=== PATIENT | female | born 1995 | race Hispanic/Latino ===

== ENCOUNTER 2019-05-14 07:32 | Emergency (ER) | payer BC, OTHER ==
--- OUTSIDE RECORDS SUMMARY | 2019-05-14 07:47 | XMS REPORT ---
:1995 [facility] Address [address] [place] [address] Dr. Deluca [address] [place] [id number] Care Team Providers Name Role Phone Unavailable Unavailable Unavailable Problems This patient has no known problems. Allergies, Adverse Reactions, Alerts This patient has no known allergies or adverse reactions. Medications This patient has no known medications.
[2019-05-14] MEDS ORDERED: ONDANSETRON 4 MG (ODT) TAB ONE (08:17)
[2019-05-14 08:40] LABS: Urine Blood NEGATIVE (NEG); Urine Glucose NEGATIVE (NEG); Urine Protein 1+ (NEG); Urine pH 6.5 (5.0-7.0)
[2019-05-14 08:41] LABS: Absolute Lymphocytes (CBC) 2.2 K/uL (0.7-4.9); Basophils % 0.4 % (0-1.3); Eosinophils % 0.5 % (0-4.4); Hematocrit 38.7 % (36.0-45.0); Lymphocytes % 33.1 % (15.3-44.8); MPV 10.2 fL (7.6-11.3); Monocytes % 4.6 % (3.3-12.3); RBC Red Blood Cell Count 4.25 M/uL (3.86-4.86)
[2019-05-14] MEDS ORDERED: ONDANSETRON 4 MG/2 ML VIAL ONE (08:41)
[2019-05-14] MEDS ORDERED: NA CHLORIDE 0.9% 1,000 ML ONE (08:41)
[2019-05-14] MEDS ORDERED: FAMOTIDINE 20 MG/2 ML VIAL IV ONE (08:41)
[2019-05-14 08:46] LABS: ALT/SGPT 14 U/L (12-78); AST/SGOT 14 U/L (15-37); Alkaline Phosphatase 55 U/L (45-117); BUN Blood Urea Nitrogen 8 mg/dL (7-18); Bicarbonate 26 mmol/L (21-32); Bilirubin Direct 0.2 mg/dL (0-0.2); Bilirubin Total 0.6 mg/dL (0.2-1.0); Glucose Level 83 mg/dL (74-106); Lipase 81 U/L (73-393); Potassium 3.3 mmol/L (3.5-5.1); Protein, Total 7.9 g/dL (6.4-8.2); Sodium Level 140 mmol/L (136-145)
[2019-05-14] MEDS ORDERED: POTASSIUM 25 MEQ EFFERV TAB ONE (09:12)
--- NOTE | 2019-05-14 09:37 | ER ---
Nurse's Notes [facility] Name: Roopa Mcclure Age: 23 yrs Sex: Female : 1995 Arrival Date: 05/14/2019 Time: 07:36 Bed 18 Private MD: Diagnosis: Nausea and vomiting; related conditions, unspecified, first trimester Presentation: 05/14 07:44 Presenting complaint: Patient states: i dont know my LMP but per US im 11 weeks hj , since yesterday, theresa been vomiting and couldn't hold down even water; reports feeling cold; denies abd pain, denies diarrhea;. Transition of care: patient was not received from another setting of care. Onset of symptoms was May 14, 2019. Risk Assessment: Do you want to hurt yourself or someone else? Patient reports no desire to harm self or others. Initial Sepsis Screen: Does the patient meet any 2 criteria? No. Patient's initial sepsis screen is negative. Does the patient have a suspected source of infection? No. Patient's initial sepsis screen is negative. Care prior to arrival: None. 07:44 Method Of Arrival: Ambulatory 07:44 Acuity: IRVING 3 hj Triage Assessment: 07:46 General: Appears in no apparent distress. uncomfortable, Behavior is calm, cooperative, hj appropriate for age. Pain: Denies pain. GI: Reports nausea, vomiting. 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 - Social history:: Smoking status: Patient/guardian denies using tobacco, Patient/guardian denies using alcohol. - Ebola Screening: : Patient negative for fever greater than or equal to 101.5 degrees Fahrenheit, and additional compatible Ebola Virus Disease symptoms Patient denies exposure to infectious person Patient denies travel to an Ebola-affected area in the 21 days before illness onset. Screenin:46 Abuse screen: Denies threats or abuse. Denies injuries from another. Nutritional hj screening: No deficits noted. Tuberculosis screening: No symptoms or risk factors identified. Fall Risk None identified. Assessment: 07:47 GI: Abdomen is non-distended. hj 08:10 Reassessment: vomited x 1 after giving zofran PO;. Vital Signs: 07:47 BP 107 / 83; Pulse 79; Resp 18; Temp 98.5(O); Pulse Ox 100% on R/A; Weight 60.78 kg; hj Height 5 ft. 0 in. (152.40 cm); Pain 0/10; 08:02 BP 104 / 69 LA Supine; Pulse 69; Resp 16; Pulse Ox 100% on R/A; dh3 08:04 BP 108 / 82 LA Sitting; Pulse 75; Resp 17; Pulse Ox 97% on R/A; dh3 08:06 BP 111 / 80 LA Standing; Pulse 83; Resp 18; Pulse Ox 100% on R/A; dh3 09:47 BP 100 / 85; Pulse 75; Resp 18; Pulse Ox 100% on R/A; hj 07:47 Body Mass Index 26.17 (60.78 kg, 152.40 cm) ED Course: 07:36 Patient arrived in ED. mr 07:38 German Jiang PA is PHCP. cp 07:39 Jordi Shepherd MD is Attending Physician. cp 07:43 Keyshawn Graham, AMBER is Primary Nurse. hj 07:45 Triage completed. hj 07:47 Arm band placed on. hj 07:47 Patient has correct armband on for positive identification. Placed in gown. Bed in low hj position. Call light in reach. Side rails up X 1. 07:55 Urine collected: clean catch specimen, alfredo colored. dh3 08:20 Initial lab(s) drawn, by ne, sent to lab. Inserted saline lock: 22 gauge in right hj antecubital area, using aseptic technique. Blood collected. 08:34 Inserted saline lock: 22 gauge in left antecubital area, using aseptic technique. dh3 09:46 No provider procedures requiring assistance completed. IV discontinued, intact, hj bleeding controlled, No redness/swelling at site. Pressure dressing applied. Administered Medications: 08:01 Drug: Zofran 4 mg Route: PO; hj 08:08 Follow up: Response: No adverse reaction; Nausea is decreased hj 08:30 Drug: NS 0.9% 1000 ml Route: IV; Rate: 1 bolus; Site: left antecubital; hj 09:47 Follow up: IV Status: Completed infusion; IV Intake: 1000ml hj 08:30 Drug: Zofran 4 mg Route: IVP; Site: left antecubital; hj 08:56 Follow up: Response: No adverse reaction hj 08:30 Drug: Pepcid 20 mg Route: IVP; Site: left antecubital; hj 08:57 Follow up: Response: No adverse reaction hj 08:54 Drug: Potassium Effervescent Tablet 25 mEq Route: PO; hj 09:40 Follow up: Response: No adverse reaction hj Intake: 09:47 IV: 1000ml; Total: 1000ml. Outcome: 09:36 Discharge ordered by . cp 09:46 Discharged to home ambulatory. hj 09:46 Condition: stable 09:46 Discharge instructions given to patient, Instructed on discharge instructions, follow up and referral plans. medication usage, Demonstrated understanding of instructions, follow-up care, medications, Prescriptions given X 3. 09:55 Patient left the ED. Signatures: Krystin Gonzalez Henry, RN RN hj German Jiang PA PA cp Herrera, Deanna 3
--- NOTE | 2019-05-14 09:37 | EDPHYS ---
Physician Documentation [facility] Name: Roopa Mcclure Age: 23 yrs Sex: Female : 1995 Arrival Date: 05/14/2019 Time: 07:36 Bed 18 Private MD: ED Physician Jordi Shepherd HPI: 05/14 08:05 This 23 yrs old Female presents to ER via Ambulatory with complaints of cp Vomiting, Sore Throat, 11 wks . 08:05 The patient presents to the emergency department with nausea and vomiting. cp 08:05 The estimated gestational age is 11 weeks. cp 08:05 course: care: private OB physician, Leakage of Fluid: none cp appreciated, Ultrasound: the patient had an ultrasound. Previous pregnancies: in previous pregnancies patient has had no complications. Associated signs and symptoms: Pertinent negatives: abdominal pain, diarrhea, fever, ruptured membranes, vaginal bleeding. 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 - Social history:: Smoking status: Patient/guardian denies using tobacco, Patient/guardian denies using alcohol. - Ebola Screening: : Patient negative for fever greater than or equal to 101.5 degrees Fahrenheit, and additional compatible Ebola Virus Disease symptoms Patient denies exposure to infectious person Patient denies travel to an Ebola-affected area in the 21 days before illness onset. ROS: 08:10 Constitutional: Positive for poor PO intake, Negative for body aches, chills, fever. cp 08:10 Eyes: Negative for injury, pain, redness, and discharge. cp 08:10 ENT: Negative for drainage from ear(s), ear pain, sore throat, difficulty swallowing, difficulty handling secretions. 08:10 Cardiovascular: Negative for chest pain, palpitations. 08:10 Respiratory: Negative for cough, shortness of breath, wheezing. 08:10 Abdomen/GI: Positive for nausea and vomiting, Negative for abdominal pain, diarrhea, constipation, hematemesis, black/tarry stool, rectal bleeding. 08:10 Skin: Negative for rash. 08:10 Neuro: Negative for altered mental status, syncope, weakness. 08:10 All other systems are negative. Exam: 08:20 Constitutional: The patient appears in no acute distress, alert, awake, non-toxic, well cp developed, well nourished. 08:20 Head/Face: Normocephalic, atraumatic. cp 08:20 Eyes: Periorbital structures: appear normal, Conjunctiva: normal, no exudate, no injection, Sclera: no appreciated abnormality, Lids and lashes: appear normal, bilaterally. 08:20 ENT: External ear(s): are unremarkable, Nose: is normal, Mouth: Lips: moist, Oral mucosa: pink and intact, moist, Posterior pharynx: Airway: no evidence of obstruction, patent. 08:20 Chest/axilla: Inspection: normal, Palpation: is normal, no crepitus, no tenderness. 08:20 Cardiovascular: Rate: normal, Rhythm: regular. 08:20 Respiratory: the patient does not display signs of respiratory distress, Respirations: normal, no use of accessory muscles, no retractions, no splinting, no tachypnea, labored breathing, is not present, Breath sounds: are clear throughout, no decreased breath sounds, no stridor, no wheezing. 08:20 Abdomen/GI: Inspection: abdomen appears normal, Bowel sounds: active, all quadrants, Palpation: abdomen is soft and non-tender, in all quadrants, rebound tenderness, is not appreciated, involuntary guarding, is not appreciated. 08:20 Back: pain, is absent, ROM is normal. Vital Signs: 07:47 BP 107 / 83; Pulse 79; Resp 18; Temp 98.5(O); Pulse Ox 100% on R/A; Weight 60.78 kg; hj Height 5 ft. 0 in. (152.40 cm); Pain 0/10; 08:02 BP 104 / 69 LA Supine; Pulse 69; Resp 16; Pulse Ox 100% on R/A; dh3 08:04 BP 108 / 82 LA Sitting; Pulse 75; Resp 17; Pulse Ox 97% on R/A; dh3 08:06 BP 111 / 80 LA Standing; Pulse 83; Resp 18; Pulse Ox 100% on R/A; dh3 09:47 BP 100 / 85; Pulse 75; Resp 18; Pulse Ox 100% on R/A; hj 07:47 Body Mass Index 26.17 (60.78 kg, 152.40 cm) hj MDM: 07:39 Patient medically screened. cp 08:00 Differential diagnosis: dehydration, electrolyte abnormality, diabetes mellitus. cp 09:35 Data reviewed: vital signs, nurses notes, lab test result(s), radiologic studies, cp ultrasound. 09:35 Counseling: I had a detailed discussion with the patient and/or guardian regarding: the cp historical points, exam findings, and any diagnostic results supporting the discharge/admit diagnosis, lab results, radiology results, the need for outpatient follow up, an OB/Gyne specialist, to return to the emergency department if symptoms worsen or persist or if there are any questions or concerns that arise at home. Response to treatment: the patient's symptoms have markedly improved after treatment, Nausea improved and vomiting resolved, and as a result, I will discharge patient. 05/14 07:58 Order name: Urine Dipstick--Ancillary (enter results); Complete Time: 08:44 05/14 07:58 Order name: Urine --Ancillary (enter results); Complete Time: 08:44 bd 05/14 08:15 Order name: Basic Metabolic Panel; Complete Time: 08:47 cp 05/14 08:47 Interpretation: Normal except: K 3.3; CRE 0.50. cp 05/14 08:15 Order name: CBC with Diff; Complete Time: 08:44 cp 05/14 08:45 Interpretation: Normal except: MCV 91.1; MCH 31.0. cp 05/14 08:15 Order name: Creatinine for Radiology; Complete Time: 08:44 cp 05/14 08:15 Order name: Hepatic Function; Complete Time: 08:47 cp 05/14 07:59 Order name: Orthostatics; Complete Time: 08:08 cp 05/14 08:15 Order name: Lipase; Complete Time: 08:47 cp 05/14 08:15 Order name: IV Saline Lock; Complete Time: 08:23 cp 05/14 08:15 Order name: Labs collected and sent; Complete Time: 08:23 cp Administered Medications: 08:01 Drug: Zofran 4 mg Route: PO; 08:08 Follow up: Response: No adverse reaction; Nausea is decreased hj 08:30 Drug: NS 0.9% 1000 ml Route: IV; Rate: 1 bolus; Site: left antecubital; hj 09:47 Follow up: IV Status: Completed infusion; IV Intake: 1000ml hj 08:30 Drug: Zofran 4 mg Route: IVP; Site: left antecubital; hj 08:56 Follow up: Response: No adverse reaction hj 08:30 Drug: Pepcid 20 mg Route: IVP; Site: left antecubital; hj 08:57 Follow up: Response: No adverse reaction hj 08:54 Drug: Potassium Effervescent Tablet 25 mEq Route: PO; hj 09:40 Follow up: Response: No adverse reaction Disposition: 05/14/19 09:36 Discharged to Home. Impression: Nausea and vomiting, related conditions, unspecified, first trimester. - Condition is Stable. - Discharge Instructions: Form - Excuse from Work, School, or Physical Activity, Form - Return To Work, Potassium Content of Foods, Nausea and Vomiting, Adult. - Prescriptions for Vitamin 27- 0.8 mg Oral Tablet - take 1 tablet by ORAL route once daily; 60 tablet. Zofran 4 mg Oral Tablet - take 1 tablet by ORAL route every 12 hours As needed; 6 tablet. Pepcid 20 mg Oral Tablet - take 1 tablet by ORAL route every 12 hours for 10 days; 20 tablet. - Work release form, Medication Reconciliation Form, Thank You Letter, Antibiotic Education, Prescription Opioid Use form. - Follow up: Private Physician; When: 1 - 2 days; Reason: Recheck today's complaints. - Problem is new. - Symptoms have improved. Signatures: Dispatcher [facility] Keyshawn Graham RN RN hj Page, Corey, PA PA cp Corrections: (The following items were deleted from the chart) 09:55 09:36 05/14/2019 09:36 Discharged to Home. Impression: Nausea and vomiting; hj related conditions, unspecified, first trimester. Condition is Stable. Forms are Medication Reconciliation Form, Thank You Letter, Antibiotic Education, Prescription Opioid Use. Follow up: Private Physician; When: 1 - 2 days; Reason: Recheck today's complaints. Problem is new. Symptoms have improved. cp 05/15 06:31 05/14 08:05 The patient presents to the emergency department with nausea, with "dry cp heaves", vomiting, that is continuous, cp 05/15 08:05 Onset: The symptoms/episode began/occurred yesterday, cp cp 05/15 08:05 Possible causes: , cp cp
[2019-05-14 10:01] VITALS: TEMP 98.5
[2019-05-14 10:05] VITALS: O2SAT 100
[2019-05-14 10:07] VITALS: BP 100/85
== END 2019-05-14 09:55 | disposition home or self-care (01) ==
LOC: ER 07:32
DX: O21.9 Vomiting of pregnancy, unspecified (principal); Z3A.11 11 weeks gestation of pregnancy
CPT/HCPCS: 36415; 80048; 80076; 81003; 81025; 83690; 85025; 96361; 96374; 96375; 99284; J2405; J7030

== ENCOUNTER 2019-08-02 02:22 | Emergency (ER) | payer OTHER ==
--- OUTSIDE RECORDS SUMMARY | 2019-08-02 02:43 | XMS REPORT ---
:1995 Author Organization [facility] Address [address] [place] [address] Dr. Deluca [address] [place] [id number] Care Team Providers Name Role Phone Unavailable Unavailable Unavailable Problems This patient has no known problems. Allergies, Adverse Reactions, Alerts This patient has no known allergies or adverse reactions. Medications This patient has no known medications.
[2019-08-02] MEDS ORDERED: ONDANSETRON 4 MG/2 ML VIAL ONE (03:00)
[2019-08-02] MEDS ORDERED: NA CHLORIDE 0.9% 2,000 ML ONE (03:00)
[2019-08-02] MEDS ORDERED: MEPERIDINE HCL 25 MG/0.5 ML ONE (03:00)
[2019-08-02 03:04] LABS: Absolute Lymphocytes (CBC) 2.4 K/uL (0.7-4.9); Basophils % 0.2 % (0-1.3); Hematocrit 30.2 % (36.0-45.0); Lymphocytes % 20.7 % (15.3-44.8); MPV 10.1 fL (7.6-11.3); RBC Red Blood Cell Count 3.28 M/uL (3.86-4.86)
[2019-08-02 03:33] LABS: ALT/SGPT 11 U/L (12-78); AST/SGOT 8 U/L (15-37); Albumin 2.9 g/dL (3.4-5.0); Alkaline Phosphatase 77 U/L (45-117); BUN Blood Urea Nitrogen 6 mg/dL (7-18); Bicarbonate 24 mmol/L (21-32); Bilirubin Direct < 0.1 mg/dL (0-0.2); Bilirubin Total 0.1 mg/dL (0.2-1.0); Glucose Level 84 mg/dL (74-106); Lipase 78 U/L (73-393); Potassium 3.6 mmol/L (3.5-5.1); Protein, Total 6.6 g/dL (6.4-8.2); Sodium Level 140 mmol/L (136-145)
[2019-08-02 04:28] LABS: Blood Morphology Comment NOT SEEN (NOT SEEN); Platelet Estimate ADEQ
--- NOTE | 2019-08-02 07:18 | EDPHYS ---
Physician Documentation [facility] Name: Roopa Mcclure Age: 23 yrs Sex: Female : 1995 Arrival Date: 08/02/2019 Time: 02:24 Bed 5 Private MD: ED Physician Vinayak Quintanilla HPI: 08/02 02:43 This 23 yrs old Female presents to ER via Wheelchair with complaints of Low pkl Back Pain. 02:49 The patient complains of pain in the right flank. The pain radiates to the right lower pkl quadrant. Onset: The symptoms/episode began/occurred just prior to arrival, 3 hour(s) ago. Patient is about 25 weeks . 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 - Social history:: Smoking status: Patient/guardian denies using tobacco, Patient/guardian denies using alcohol, street drugs. - Ebola Screening: : Patient negative for fever greater than or equal to 101.5 degrees Fahrenheit, and additional compatible Ebola Virus Disease symptoms Patient denies exposure to infectious person Patient denies travel to an Ebola-affected area in the 21 days before illness onset. ROS: 02:49 Eyes: Negative for injury, pain, redness, and discharge, ENT: Negative for injury, pkl pain, and discharge, Neck: Negative for injury, pain, and swelling, Cardiovascular: Negative for chest pain, palpitations, and edema, Respiratory: Negative for shortness of breath, cough, wheezing, and pleuritic chest pain. 02:49 Abdomen/GI: Negative for nausea, vomiting, and diarrhea. 02:49 Back: Positive for flank pain, on the right. 02:49 : Negative for urinary symptoms. 02:49 MS/extremity: Negative for acute changes. 02:49 Skin: Negative for rash. 02:49 Neuro: Negative for altered mental status. Exam: 02:49 Head/Face: Normocephalic, atraumatic. Eyes: Pupils equal round and reactive to light, pkl extra-ocular motions intact. Lids and lashes normal. Conjunctiva and sclera are non-icteric and not injected. Cornea within normal limits. Periorbital areas with no swelling, redness, or edema. ENT: Nares patent. No nasal discharge, no septal abnormalities noted. Tympanic membranes are normal and external auditory canals are clear. Oropharynx with no redness, swelling, or masses, exudates, or evidence of obstruction, uvula midline. Mucous membranes moist. Neck: Trachea midline, no thyromegaly or masses palpated, and no cervical lymphadenopathy. Supple, full range of motion without nuchal rigidity, or vertebral point tenderness. No Meningismus. Chest/axilla: Normal chest wall appearance and motion. Nontender with no deformity. No lesions are appreciated. Cardiovascular: Regular rate and rhythm with a normal S1 and S2. No gallops, murmurs, or rubs. Normal PMI, no JVD. No pulse deficits. Respiratory: Lungs have equal breath sounds bilaterally, clear to auscultation and percussion. No rales, rhonchi or wheezes noted. No increased work of breathing, no retractions or nasal flaring. 02:49 Abdomen/GI: Inspection: gravid appearance, Bowel sounds: normal, Palpation: abdomen is soft and non-tender, in all quadrants. 02:49 Back: pain, that is moderate, of the right flank. 02:49 : Exam negative for acute changes. 02:49 Musculoskeletal/extremity: Exam is negative for acute changes. 02:49 Skin: Exam negative for rash. 02:49 Neuro: Orientation: is normal, Mentation: is normal, Cranial nerves: grossly normal, Motor: is normal. Vital Signs: 02:30 BP 122 / 83; Pulse 77; Resp 19; Temp 97.7; Pulse Ox 100% ; Weight 65.77 kg; Height 5 rr5 ft. 0 in. (152.40 cm); Pain 10/10; 03:31 BP 101 / 72; Pulse 65; Resp 17; Pulse Ox 100% ; rr5 03:35 Pain 1/10; rr5 04:21 BP 97 / 65; Pulse 66; Resp 16; Pulse Ox 99% ; Pain 1/10; rr5 06:00 BP 95 / 64; Pulse 76; Resp 15; Temp 98; Pulse Ox 99% ; Pain 0/10; rr5 07:15 BP 92 / 64; Pulse 72; Resp 16; Pulse Ox 99% on R/A; Pain 0/10; sg 02:30 Body Mass Index 28.32 (65.77 kg, 152.40 cm) rr5 MDM: 02:25 Patient medically screened. pkl 03:57 Data reviewed: vital signs. pkl 07:12 Data reviewed: lab test result(s), radiologic studies, plain films. ED course: Patient pkl feeling better. Asymptomatic. Discussed lab. and US results with patient and Dr. Duffy. Dr. Duffy agree that patient may go home and follow up in his office or return to ER if necessary. Patient under the instructions. 08/02 02:47 Order name: Basic Metabolic Panel; Complete Time: 03:48 pkl 08/02 02:47 Order name: CBC with Diff; Complete Time: 04:29 pkl 08/02 02:47 Order name: Creatinine for Radiology; Complete Time: 03:30 pkl 08/02 02:47 Order name: Hepatic Function; Complete Time: 03:48 pkl 08/02 02:47 Order name: Lipase; Complete Time: 03:48 pkl 08/02 03:08 Order name: Manual Differential; Complete Time: 04:29 EDMS 08/02 02:47 Order name: IV Saline Lock; Complete Time: 03:12 pkl 08/02 06:49 Order name: Renal Ultrasound-Complete EDMS 08/02 02:47 Order name: Labs collected and sent; Complete Time: 03:12 pkl Administered Medications: 02:49 CANCELLED (Patient Refused): TORadol 30 mg IVP once pkl 03:04 Drug: Zofran 4 mg Route: IVP; Infused Over: 2 mins; Site: right antecubital; tl1 03:34 Follow up: Response: No adverse reaction; Marked relief of symptoms; Nausea is decreasedtl1 03:05 Drug: NS 0.9% 1000 ml Route: IV; Rate: 1000 ml; Site: right antecubital; tl1 03:32 Follow up: Response: No adverse reaction; IV Status: Completed infusion; IV Intake: rr5 1000ml 03:05 Drug: Demerol 25 mg Route: IVP; Infused Over: 2 mins; Site: right antecubital; tl1 03:34 Follow up: Response: No adverse reaction; Marked relief of symptoms; Pain is decreased; tl1 RASS: Drowsy (-1) 03:33 Drug: NS 0.9% 1000 ml Route: IV; Rate: 125 ml/hr; Site: right antecubital; rr5 Disposition: 08/02/19 07:17 Discharged to Home. Impression: Right flank pain. 2 nd trimester . - Condition is Stable. - Work release form, Medication Reconciliation Form, Thank You Letter, Antibiotic Education, Prescription Opioid Use form. - Follow up: Rigo Duffy MD; When: 2 - 3 days; Reason: Re-evaluation by your physician. - Problem is new. - Symptoms are resolved. Signatures: Dispatcher [employer] EDMS Davin Lagunas RN RN sg Vinayak Quintanilla MD MD pkl Melissa Apple RN RN tl1 Manuel Dia RN RN rr5 Corrections: (The following items were deleted from the chart) 02:49 02:47 TORadol 30 mg IVP once ordered. pkl pkl 02:59 02:47 FHT's ordered. pkl bb 06:49 06:07 Abdomen Complete+US.RAD.BRZ ordered. EDPA EDMS 07:32 07:17 08/02/2019 07:17 Discharged to Home. Impression: Right flank pain. 2 nd trimester sg . Condition is Stable. Forms are Medication Reconciliation Form, Thank You Letter, Antibiotic Education, Prescription Opioid Use. Follow up: Rigo Duffy; When: 2 - 3 days; Reason: Re-evaluation by your physician. Problem is new. Symptoms are resolved. pkl
--- NOTE | 2019-08-02 07:18 | ER ---
Nurse's Notes [facility] Name: Roopa Mcclure Age: 23 yrs Sex: Female : 1995 Arrival Date: 08/02/2019 Time: 02:24 Bed 5 Private MD: Diagnosis: Right flank pain. 2 nd trimester Presentation: 08/02 02:30 Presenting complaint: Patient states: pain started around 2330H last night and it rr5 getting worse. right side of the abdomen pain going to my right lower abdomen. on and off. pain score 10/10. denies any urine problem. 02:30 Transition of care: patient was not received from another setting of care. Onset of rr5 symptoms was August 01, 2019 at 23:30. Risk Assessment: Do you want to hurt yourself or someone else? Patient reports no desire to harm self or others. Initial Sepsis Screen: Does the patient meet any 2 criteria? No. Patient's initial sepsis screen is negative. Does the patient have a suspected source of infection? No. Patient's initial sepsis screen is negative. Note seen in L\T\D cleared from their side. urinalysis done. 25 weeks . Care prior to arrival: None. 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 - Social history:: Smoking status: Patient/guardian denies using tobacco, Patient/guardian denies using alcohol, street drugs. - Ebola Screening: : Patient negative for fever greater than or equal to 101.5 degrees Fahrenheit, and additional compatible Ebola Virus Disease symptoms Patient denies exposure to infectious person Patient denies travel to an Ebola-affected area in the 21 days before illness onset. Screenin:37 Abuse screen: Denies threats or abuse. Denies injuries from another. Nutritional rr5 screening: No deficits noted. Tuberculosis screening: No symptoms or risk factors identified. Fall Risk None identified. Total Pinto Fall Scale indicates No Risk (0-24 pts). Assessment: 02:30 General: Appears in no apparent distress. uncomfortable, Behavior is calm, cooperative, rr5 appropriate for age. 02:30 Pain: Complains of pain in right flank Pain radiates to right lower quadrant Pain rr5 currently is 10 out of 10 on a pain scale. Quality of pain is described as aching, Pain began gradually, Is intermittent. Neuro: Level of Consciousness is awake, alert, obeys commands, Oriented to person, place, time, situation, Appropriate for age. Cardiovascular: Capillary refill < 3 seconds Patient's skin is warm and dry. Respiratory: Airway is patent Respiratory effort is even, unlabored, Respiratory pattern is regular, symmetrical. GI: Abdomen is round. : Reports pain in right flank(s), lower quadrant(s) since 2330 Pain is 10 out of 10 on a pain scale. 25 weeks Denies burning with urination. EENT: No signs and/or symptoms were reported regarding the EENT system. Derm: Skin is intact, Skin temperature is warm. Musculoskeletal: Circulation, motion, and sensation intact. Capillary refill < 3 seconds. 03:27 Reassessment: Patient appears in no apparent distress at this time. Patient is alert, rr5 oriented x 3, equal unlabored respirations, skin warm/dry/pink. Patient states feeling better. Patient states symptoms have improved. 04:20 Reassessment: Patient appears in no apparent distress at this time. eyes closed rr5 breathing spontaneously at room air. awaiting for ultrasound at 0630H. 04:50 Reassessment: Patient appears in no apparent distress at this time. no complaints made. rr5 05:55 Reassessment: Patient appears in no apparent distress at this time. Patient and/or rr5 family updated on plan of care and expected duration. Pain level reassessed. Patient is alert, oriented x 3, equal unlabored respirations, skin warm/dry/pink. Patient denies pain at this time. Patient states feeling better. Patient states symptoms have improved. 06:50 Reassessment: Patient appears in no apparent distress at this time. Patient is alert, rr5 oriented x 3, equal unlabored respirations, skin warm/dry/pink. awaiting for ultrasound procedure. pain free. 07:19 Reassessment: Patient appears in no apparent distress at this time. Patient and/or sg family updated on plan of care and expected duration. Pain level reassessed. Patient is alert, oriented x 3, equal unlabored respirations, skin warm/dry/pink. at bedside updating pt on results and follow up care, pt stated understanding, pt to be discharged to home Patient states feeling better. Vital Signs: 02:30 BP 122 / 83; Pulse 77; Resp 19; Temp 97.7; Pulse Ox 100% ; Weight 65.77 kg; Height 5 rr5 ft. 0 in. (152.40 cm); Pain 10/10; 03:31 BP 101 / 72; Pulse 65; Resp 17; Pulse Ox 100% ; rr5 03:35 Pain 1/10; rr5 04:21 BP 97 / 65; Pulse 66; Resp 16; Pulse Ox 99% ; Pain 1/10; rr5 06:00 BP 95 / 64; Pulse 76; Resp 15; Temp 98; Pulse Ox 99% ; Pain 0/10; rr5 07:15 BP 92 / 64; Pulse 72; Resp 16; Pulse Ox 99% on R/A; Pain 0/10; sg 02:30 Body Mass Index 28.32 (65.77 kg, 152.40 cm) rr5 Vitals: 02:59 Heart Tones Done in L\T\D Heart Rate was 158. bb ED Course: 02:24 Patient arrived in ED. ag3 02:24 Manuel Dia, RN is Primary Nurse. rr5 02:25 Vinayak Quintanilla MD is Attending Physician. pkl 02:30 Arm band placed on right wrist. rr5 02:34 Triage completed. rr5 02:39 Patient has correct armband on for positive identification. Bed in low position. Call rr5 light in reach. Side rails up X2. 02:45 No provider procedures requiring assistance completed. Inserted saline lock: 20 gauge tl1 in right antecubital area, using aseptic technique. Blood collected. 07:05 Primary Nurse role handed off by Manuel Dia, RN sg 07:05 Davin Lagunas, AMBER is Primary Nurse. sg 07:16 Rigo Duffy MD is Referral Physician. pkl 07:30 IV discontinued, intact, bleeding controlled, No redness/swelling at site. Pressure sg dressing applied. 07:53 Renal Ultrasound-Complete In Process Unspecified. EDMS Administered Medications: 02:49 CANCELLED (Patient Refused): TORadol 30 mg IVP once pkl 03:04 Drug: Zofran 4 mg Route: IVP; Infused Over: 2 mins; Site: right antecubital; tl1 03:34 Follow up: Response: No adverse reaction; Marked relief of symptoms; Nausea is decreasedtl1 03:05 Drug: NS 0.9% 1000 ml Route: IV; Rate: 1000 ml; Site: right antecubital; tl1 03:32 Follow up: Response: No adverse reaction; IV Status: Completed infusion; IV Intake: rr5 1000ml 03:05 Drug: Demerol 25 mg Route: IVP; Infused Over: 2 mins; Site: right antecubital; tl1 03:34 Follow up: Response: No adverse reaction; Marked relief of symptoms; Pain is decreased; tl1 RASS: Drowsy (-1) 03:33 Drug: NS 0.9% 1000 ml Route: IV; Rate: 125 ml/hr; Site: right antecubital; rr5 Intake: 03:32 IV: 1000ml; Total: 1000ml. rr5 Outcome: 07:17 Discharge ordered by . pkl 07:30 Discharged to home ambulatory, with family. sg 07:30 Condition: good 07:30 Discharge instructions given to patient, Instructed on discharge instructions, follow up and referral plans. safety practices, Demonstrated understanding of instructions, follow-up care. 07:32 Patient left the ED. sg Signatures: Dispatcher [employer] EDMS Davin Lagunas RN RN sg Lam, Pin, MD MD pkl Carolann Michaud RN RN Melissa Kyle RN RN tl1 Allison Pires Raymond RN RN rr5
[2019-08-02 07:41] VITALS: O2SAT 99
[2019-08-02 07:43] VITALS: BP 95/64; TEMP 98
--- NOTE | 2019-08-02 08:40 | RAD REPORT ---
EXAM DESCRIPTION: US - Renal Ultrasound-Complete - 08/02/2019 7:51 am CLINICAL HISTORY: . Right flank pain COMPARISON: None. FINDINGS: The right kidney measures 11 cm with a normal echotexture. The left kidney measures 11 cm with a normal echotexture. Hydronephrosis is not seen. . The bladder contains tiny echogenic particles Tiny echogenic foci are present within the bladder without shadowing. IMPRESSION: Unremarkable renal ultrasound. Tiny echogenic particles within the bladder may be the sequela of prior infection or inflammation Tiny echogenic particles within the gallbladder may represent sludge or air.
== END 2019-08-02 07:32 | disposition home or self-care (01) ==
LOC: ER 02:22
DX: O26.892 Other specified pregnancy related conditions, second trimester (principal); Z3A.25 25 weeks gestation of pregnancy
CPT/HCPCS: 85025; 80048; 36415; 80076; 83690; 76770; 96375; 96374; 99284; J2175; J7030; J2405

== ENCOUNTER 2019-11-13 04:37 | Inpatient (IN) | payer OTHER ==
[2019-11-12 16:25] LABS: Urine Appearance CLOUDY; Urine Bilirubin NEGATIVE (NEG); Urine Blood NEGATIVE (NEG); Urine Color YELLOW; Urine Glucose NEGATIVE (NEG); Urine Protein 1+ (NEG); Urine Specific Gravity 1.025 (1.005-1.030)
[2019-11-12 16:26] LABS: Absolute Lymphocytes (CBC) 1.7 K/uL (0.7-4.9); Basophils % 0.5 % (0-1.3); Hematocrit 30.8 % (36.0-45.0); Lymphocytes % 15.3 % (15.3-44.8); MPV 10.9 fL (7.6-11.3)
[2019-11-12 16:38] LABS: Protime INR 0.98
[2019-11-12 16:44] LABS: Urine RBC <5 /HPF (NONE SEEN)
[2019-11-12 16:45] LABS: Urine Bacteria 20-50 /HPF (<20); Urine Culture Reflex Order REFLEXED
[2019-11-12 21:13] LABS: RPR (Rapid Plasma Reagin) NON-REACT (NON-REACT)
[~2019-11-13 04:37] MED LIST: CEFAZOLIN 2 GM in NA CHLORIDE 0.9% 100 ML IVPB SCH
--- OUTSIDE RECORDS SUMMARY | 2019-11-13 04:40 | XMS REPORT ---
:1995 Author Organization [facility] Address [address] [place] [address] Dr. Deluca [address] [place] [id number] Care Team Providers Name Role Phone Unavailable Unavailable Unavailable Problems This patient has no known problems. Allergies, Adverse Reactions, Alerts This patient has no known allergies or adverse reactions. Medications This patient has no known medications.
[2019-11-13] MEDS ORDERED: Ringers Lactate 1,000 ML IV PRN (05:06)
[2019-11-13] MEDS ORDERED: NA CIT/CITRIC AC 30 ML ORAL UDC PO ONE (05:09)
[2019-11-13] MEDS ORDERED: FAMOTIDINE 20 MG/2 ML VIAL IV ONE (05:10)
[2019-11-13 05:22] VITALS: BMI 32.5
[2019-11-13] MEDS ORDERED: CEFAZOLIN/SWI 2gm 2 GM/20 ML SYR ONE (05:44)
[2019-11-13] MEDS ORDERED: Ringers Lactate 1,000 ML IV SCH (06:00)
[2019-11-13] MEDS ORDERED: METOCLOPRAMIDE 10 MG/2mL INJ IV SCH ×2 (06:00→11:00)
[2019-11-13] MEDS ORDERED: LIDOCAINE 1% MPF 5 ML VIAL ONE (07:12)
[2019-11-13] MEDS ORDERED: OXYTOCIN 10 UNIT/ML ML IV ONE ×2 (07:12→08:56)
[2019-11-13] MEDS ORDERED: MORPHINE SULFATE/PF 1 MG/ML (10 ML AMP) ONE (07:12)
[2019-11-13] MEDS ORDERED: BUPIVACAINE 0.75% (PF) 2 ML SP ONE (07:13)
[2019-11-13] MEDS ORDERED: INFLUENZA VACCINE (for 3y+) 0.5 ML DOSE IMVAC ONE (08:00)
[2019-11-13] MEDS ORDERED: EPHEDRINE SULF 50 MG/ML VIAL ONE (08:28)
--- NOTE | 2019-11-13 08:34 | PREOPHP ---
Date of Admission: 11/13/2019 History Of Present Illness: The patient is a 23-year-old 2, para 1, for repeat sect ion. Infection, blood loss, anesthetic complications, injury to bladder, bowel, ureter; postoperativ e complications; clots in legs; pneumonia discussed. Patient knows fully well, this does not constit [place] all the possible problems that could occur during or following surgery. Family History: Paternal grandmother and father with hypertension. Paternal grandfather with heart attack. Paternal grandmother with diabetes. Patient has had previous C-sections for apparent failur e to progress. Allergies: HAS NO ALLERGIES. Current Medications: Has been taking vitamins prior to admission. Physical Examination: HEENT: Clear. Pupils equal, round, reactive to light and accommodation. Conjunctivae well perfused . No oral, lingual, or buccal lesions. Chest and Lungs: Clear. Heart: Without murmurs, thrills, heaves, or rubs. Breasts: Without masses on previous visits. Abdomen: Term size. Baby is 7 pounds plus. Extremities: Clear with only minor edema, but baby is still somewhat floating, but approximate the c ervix and flugs up with exam. Assessment And Plan: We will proceed with repeat section tomorrow morning at 39 weeks. VANNESSA/JUJU Voice ID: [id number]
[2019-11-13] MEDS ORDERED: DIPHENHYDRAMINE 25 MG TAB/CAP PO PRN (09:17)
[2019-11-13] MEDS ORDERED: BISACODYL 10 MG RECTAL SUPP RECT PRN (09:17)
[2019-11-13] MEDS ORDERED: KETOROLAC 30 MG/ML INJ IV PRN (09:17)
[2019-11-13] MEDS ORDERED: ACETAMINOPHEN 500 MG TAB PO PRN ×2 (09:17)
[2019-11-13] MEDS ORDERED: ONDANSETRON 4 MG/2 ML VIAL IV PRN (09:17)
[2019-11-13] MEDS ORDERED: ONDANSETRON 4 MG (ODT) TAB PO PRN (09:17)
[2019-11-13] MEDS ORDERED: IBUPROFEN 600 MG TAB PO PRN (09:17)
[2019-11-13] MEDS ORDERED: KETOROLAC 30 MG/ML INJ IM PRN (09:17)
[2019-11-13] MEDS ORDERED: CEFAZOLIN/SWI 1gm 1 GM/10 ML SYR IV SCH (09:45)
[2019-11-13] MEDS ORDERED: D5LR 1,000 ML with OXYTOCIN 20 UNIT IV SCH ×2 (10:00)
[2019-11-13] MEDS ORDERED: OXYTOCIN/LR 20 UNIT/1,000 ML BAG IV SCH (10:00)
--- NOTE | 2019-11-13 11:07 | PN ---
Patient is chely regularly. At this point, she is not uncomfortable. Anesthesia is already co unseled the patient. Her hematocrit on admission was 31 approximately. Patient admits she has not b een taking her vitamins. Full preop talk given again and anticipate surgery start fairly so on. VANNESSA/JUJU Voice ID: [id number] Report ID: [id number]
[2019-11-13] MEDS ORDERED: Ringers Lactate 1,000 ML IV ONE (17:42)
--- NOTE | 2019-11-13 20:22 | OP ---
Surgeon: Rigo Duffy MD Weapons Designer: Dr. Lugo. Indications: -[id number]-oux 2, para 1, 39 weeks gestation for repeat section. Infection, blood loss, anesthetic complications, injury to bladder, bowel, ureter, postoperative com plications, clots in legs, pneumonia were discussed. Patient knows fully well, this does not constit [place] all the possible problems that could occur during or following surgery and knows with each surger y, risk of complications increases. Anesthesia: Spinal block anesthesia, Dr. Munoz. Description Of Procedure: After prepping and draping, time-out was performed. Pfannenstiel incision was created over the old incision site. Incision was carried to the fascia. The fascia was incised and incision was carried transversely bilaterally. Anterior and posterior fascial planes were devel oped with both blunt and sharp dissection. The underlying rectus muscle , and peritoneal de fect entered. Low transverse bladder flap developed. Low transverse uterine incision was created. A 7 to 8 pounds male was delivered without difficulty. Apgars 9 and 9. Cord blood specimen w as obtained. Placenta was removed manually. Uterus cleared of clot and blood and exteriorized. Cer vical os dilated with ring clamp. Uterus closed with a running locked stitch of 1 chromic followed b y an imbricating stitch of 1 chromic. Estimated blood loss during procedure was 800 cc or less. Gut ters cleared of clot and blood. Uterus was replaced in the peritoneal cavity. Suture line inspected . No further bleeding. The muscles were then reapproximated with 0 Vicryl 3 interrupted sutures. T he fascia was closed with 1 Vicryl running from either angle to the midline. Subcutaneous tissue rhina sed with 2-0 plain. Absorbable refugio placed and then metal refugio. Patient had been given 2 g of Ancef. Tolerated all procedures well. Transferred back to her room in good condition. Final Diagnoses: Term intrauterine . Repeat section. Spinal block anesthesia. P re-existing anemia on admission. VANNESSA/JUJU Voice ID: [id number] Report ID: [id number]
[2019-11-14] MEDS ORDERED: MAGNESIUM HYDROXIDE 8% 30 ML PO PRN (09:17)
[2019-11-14] MEDS: Oxycodone HCl/Acetaminophen 1 TAB TAB PO PRN (21:00)
[2019-11-15] MEDS: Oxycodone HCl/Acetaminophen 1 TAB TAB PO PRN (07:30)
[2019-11-15 07:49] VITALS: BP 117/74; TEMP 98.5
[2019-11-15] MEDS ORDERED: INFLUENZA VACCINE (for 3y+) 0.5 ML DOSE IMVAC ONE (09:00)
--- NOTE | 2019-11-15 09:39 | PN ---
23-year-old female 2, para 1, for repeat section at 39 weeks. Postoperatively, the patient is doing well, afebrile. She is already steady and walked without problems. Her hematocrit on admission was in the 30 to 31 range. Postoperatively, 26 to 27 range. Patient is aware of this a nd admits she has not been taking her vitamins. We will discontinue her Hyatt this morning. Let her ambulate and if she has no dizziness we will discontinue the IV at that time. Betzaida has b een completely normal. No post spinal block problems. If all goes well, she will be observed today, dismissed tomorrow. Dismissal instructions have already been given but will go over those again sofi orrow, doing well at this point postop. VANNESSA/JUJU Voice ID: [id number] Report ID: [id number]
--- NOTE | 2019-11-15 10:03 | DS ---
Date of Discharge: 11/15/2019 23-year-old 2, para 1, previous section for repeat section. Delivered at 3 9 weeks of an estimated 7-pound plus male infant. Apgars 9 and 9. Spinal block anesthesia. 800 cc blood loss or less. Ancef for prophylaxis pre and postop. Postoperatively, afebrile, ambulating and voiding. Lochia is normal. She will be dismissed later this morning, to return to my office next w nulato for staple removal. To report any temperature elevation of 100 degrees or greater, severe pain, heavy bleeding, or any other type of abnormalities. No post spinal block problems. Patient entered the hospital, anemic, says she has not been taking her vitamins or iron, knows that this problem will continue unless she gets adequate iron into her diet. Final Diagnoses: Term intrauterine . Repeat section. Spinal block anesthesia. P re-existing anemia. VANNESSA/JUJU Voice ID: [id number] Report ID: [id number]
[2019-11-17 22:45] LABS: HBsAG Nonreactive (Nonreactive)
== END 2019-11-15 09:00 | disposition home or self-care (01) | DRG 788 ==
LOC: 2ND-WC 04:37
PROVIDERS: ADMIT Specialist; ATTEND Specialist
PROC: 10D00Z1 Extraction of Products of Conception, Low, Open Approach (ICD-10-PCS; principal; 2019-11-13 08:31)
DX: O99.013 Anemia complicating pregnancy, third trimester (principal); O34.211 Maternal care for low transverse scar from previous cesarean delivery; Z3A.39 39 weeks gestation of pregnancy; Z37.0 Single live birth
CPT/HCPCS: 36415; 81001; 85014; 85025; 85610; 85730; 86592; 86850; 86900; 86901; 87086; 87088; 87340; 88307; 90471; J0690; J2405; J2590; J2765; J7120; Q2035

== ENCOUNTER 2022-11-24 14:36 | Emergency (ER) | payer OTHER ==
--- OUTSIDE RECORDS SUMMARY | 2022-11-24 14:41 | XMS REPORT | Continuity of Care Document ---
:1995 Author Organization [facility] t Address [address] [place] [address] Care Team Providers Name Role Phone JACKIE PAUL Primary Care Physician Unavailable JACKIE PAUL Attending Clinician Unavailable Visit, [facility] Nurse Attending Clinician Unavailable Jackie Bennett Attending Clinician [phone] Alexandru Resendiz Attending Clinician Doctor Unassigned, [place] Attending Clinician Unavailable ALEXANDRU MARTINEZ Attending Clinician Unavailable Mariam Neri DO Attending Clinician CARRIE HOLDEN Attending Clinician Unavailable Payers Payer Name Policy Type Policy Number Effective Date Expiration Date S ource [place]ID [place] [id number] 2019 00:00:00 [facility] [id number] 2019 [facility] MEDICAID 00:00:00 [facility] [id number] 2022 00:00:00 Problems Condition Condition Condition Status Onset Resolution Last Treating Co mments Source Name Details Category Date Date Treatment Clinician Date Nausea and Nausea and Disease Active U nivers vomiting vomiting 5-28 ity of during during 00:00: [place] 00 [facility] GBS (group GBS (group Disease Active Overview : Univers B B - Formattin ity of streptococ streptococ 00:00: g of this [place] cus) UTI cus) UTI 00 note Medica l complicati complicati might be Branch ng ng different from the original. pending ERASMO Supervisio Supervisio Disease Active U nivers n of n of 03-26 ity of high-risk high-risk 00:00: Mando scott 00 [facility] Branch Multiparit Multiparit Disease Active U nivers y y 03-26 ity of 00:00: [place] 00 Medical Branch History of History of Disease Active Overview : Univers 03-26 Formattin ity of section section 00:00: g of this [place] 00 note Medical might be Branch different from the original. ROR requested Need for Need for Disease Active 2017-11 Unive rs prophylact prophylact 2-05 it y of ic ic 00:00: [place] vaccinatio vaccinatio 00 Me dical n and n and Branch inoculatio inoculatio n against n against influenza influenza Allergies, Adverse Reactions, Alerts Allergy Allergy Status Severity Reaction(s) Onset Inactive Treating Comm ents Source Name Type Date Date Clinician NO KNOWN Drug Active Univers ALLERGIE Class ity of S [facility] Social History Social Habit Start Date Stop Date Quantity Comments Source History SDOH University o f Alcohol Frequency [place] M edical Branch History [facility] University o f Alcohol Std [place] Medical Drinks Branch History [facility] University o f Alcohol Binge [place] Medic al Branch Exposure to 2022-10-15 2022-10-25 Not sure University of SARS-CoV-2 00:00:00 15:10:00 [facility] (event) Branch Alcohol intake 2022-10-25 2022-10-25 Current drinker Unive rsity of 00:00:00 00:00:00 of alcohol [facility] (finding) Branch Tobacco Comment 2022-07-05 2022-07-05 vaping on Universit y of 00:00:00 00:00:00 occassion [facility] Tobacco use and 2022-07-05 2022-07-05 Smokeless tobacco Un iversity of exposure 00:00:00 00:00:00 non-user [facility] Alcohol Comment 2018-05-24 2018-05-24 social Universit y of 00:00:00 00:00:00 [facility] Sex Assigned At [birth year] Universit y of 00:00:00 00:00:00 [facility] Smoking Status Start Date Stop Date Source Never smoked tobacco [facility] Medications Ordered Filled Start Stop Current Ordering Indication Dosage Frequency Signature Comments Components Source Medication Medication Date Date Medication? Clinician (SIG) Name Name medroxyPROG 2022-0 3- No [id number] 150mg Univers ESTERone 5-16 04-17 ity of (DEPO-PROVE 15:15: 15:14 [place] RA) 00 :00 Medical injection Branch 150 mg medroxyPROG 2022-0 3- No [id number] 150mg Univers ESTERone 5-16 04-17 ity of (DEPO-PROVE 15:15: 15:14 [place] RA) 00 :00 Medical injection Branch 150 mg medroxyPROG 2022-0 3- No [id number] 150mg Univers ESTERone 5-16 04-17 ity of (DEPO-PROVE 15:15: 15:14 [place] RA) 00 :00 Medical injection Branch 150 mg medroxyPROG 2022-0 3- No [id number] 150mg Univers ESTERone 5-16 04-17 ity of (DEPO-PROVE 15:15: 15:14 [place] RA) 00 :00 Medical injection Branch 150 mg medroxyPROG 2022-0 3- No [id number] 150mg 150 mg, Univers ESTERone 5-16 04-17 Intramuscu ity of (DEPO-PROVE 15:15: 15:14 lar, [place] RA) 00 :00 [id number], Medical injection 4 doses, Branch 150 mg First dose on Tue04/12/22 at 1015, Last dose on Tue12/20/22 at 1015, Routine medroxyPROG 2022-0 3- No [id number] 150mg Univers ESTERone 5-16 04-17 ity of (DEPO-PROVE 15:15: 15:14 [place] RA) 00 :00 Medical injection Branch 150 mg medroxyPROG 2022-0 2023- No [id number] 150mg Univers ESTERone 5-16 04-17 ity of (DEPO-PROVE 15:15: 15:14 [place] RA) 00 :00 Medical injection Branch 150 mg medroxyPROG 2022-0 3- No [id number] 150mg 150 mg, Univers ESTERone 5-16 04-17 Intramuscu ity of (DEPO-PROVE 15:15: 15:14 lar, [place] RA) 00 :00 [id number], Medical injection 4 doses, Branch 150 mg First dose on Tue04/12/22 at 1015, Last dose on Tue12/20/22 at 1015, Routine medroxyPROG 3- No [id number] 150mg Univers ESTERone 04-12 ity of (DEPO-PROVE 15:15: 15:14 [place] RA) 00 :00 Medical injection Branch 150 mg Immunizations Ordered Filled Immunization Date Status Comments [facility] e Immunization Name Name [facility] 2022-05-03 Completed University of 00:00:00 [facility] Branch HPV9 2022-05-03 Completed University of 00:00:00 [facility] Branch HPV9 2022-05-03 Completed University of 00:00:00 [facility] Branch HPV9 2022-05-03 Completed University of 00:00:00 [facility] HPV9 2022-05-03 Completed University of 00:00:00 [facility] Branch HPV9 2022-05-03 Completed University of 00:00:00 [facility] Branch HPV9 2022-05-03 Completed University of 00:00:00 [facility] HPV9 2022-03-02 Completed University of 00:00:00 [facility] Branch HPV9 2022-03-02 Completed University of 00:00:00 [facility] Branch HPV9 2022-03-02 Completed University of 00:00:00 [facility] HPV9 2022-03-02 Completed University of 00:00:00 [facility] HPV9 2022-03-02 Completed University of 00:00:00 [facility] HPV9 2022-03-02 Completed University of 00:00:00 [facility] HPV9 2022-03-02 Completed University of 00:00:00 [facility] SARS-COV-2 COVID-19 2021-05-25 Completed Unive rsity of PFIZER VACCINE 00:00:00 [facility] SARS-COV-2 COVID-19 2021-05-25 Completed Unive rsity of PFIZER VACCINE 00:00:00 [facility] SARS-COV-2 COVID-19 2021-05-25 Completed Unive rsity of PFIZER VACCINE 00:00:00 [facility] SARS-COV-2 COVID-19 2021-05-25 Completed Unive rsity of PFIZER VACCINE 00:00:00 [facility] SARS-COV-2 COVID-19 2021-05-25 Completed Unive rsity of PFIZER VACCINE 00:00:00 [facility] SARS-COV-2 COVID-19 2021-05-25 Completed Unive rsity of PFIZER VACCINE 00:00:00 [facility] SARS-COV-2 COVID-19 2021-05-25 Completed Unive rsity of PFIZER VACCINE 00:00:00 [facility] SARS-COV-2 COVID-19 2021-02-14 Completed Unive rsity of PFIZER VACCINE 00:00:00 [facility] SARS-COV-2 COVID-19 2021-02-14 Completed Unive rsity of PFIZER VACCINE 00:00:00 [facility] SARS-COV-2 COVID-19 2021-02-14 Completed Unive rsity of PFIZER VACCINE 00:00:00 [facility] SARS-COV-2 COVID-19 2021-02-14 Completed Unive rsity of PFIZER VACCINE 00:00:00 [facility] SARS-COV-2 COVID-19 2021-02-14 Completed Unive rsity of PFIZER VACCINE 00:00:00 [facility] SARS-COV-2 COVID-19 2021-02-14 Completed Unive rsity of PFIZER VACCINE 00:00:00 [facility] SARS-COV-2 COVID-19 2021-02-14 Completed Unive rsity of PFIZER VACCINE 00:00:00 [facility] Influenza Virus 2018-11-01 Completed Universit y of Vaccine Quad IM 3+ 00:00:00 [facility] Influenza Virus 2018-11-01 Completed Universit y of Vaccine Quad IM 3+ 00:00:00 [facility] Influenza Virus 2018-11-01 Completed Universit y of Vaccine Quad IM 3+ 00:00:00 [facility] Influenza Virus 2018-11-01 Completed Universit y of Vaccine Quad IM 3+ 00:00:00 [facility] Influenza Virus 2018-11-01 Completed Universit y of Vaccine Quad IM 3+ 00:00:00 [facility] Influenza Virus 2018-11-01 Completed Universit y of Vaccine Quad IM 3+ 00:00:00 [facility] Influenza Virus 2018-11-01 Completed Universit y of Vaccine Quad IM 3+ 00:00:00 [facility] Vital Signs Vital Name Observation Time Observation Value Comments Source BMI 2022-10-25 21:11:00 28.83 kg/m2 [facility] [place] [facility] Systolic blood 2022-10-25 21:11:00 121 mm[Hg] Univer sity of pressure [place] [facility] Diastolic blood 2022-10-25 21:11:00 75 mm[Hg] Unive rsity of pressure [place] [facility] Heart rate 2022-10-25 21:11:00 72 /min [facility] [place] [facility] Body temperature 2022-10-25 21:11:00 36.83 Martina Univ ersity of [place] [facility] Respiratory rate 2022-10-25 21:11:00 18 /min Univ ersity [facility] [place] [facility] Body weight 2022-10-25 21:11:00 66.951 kg [facility] [place] [facility] Systolic blood 2022-07-05 15:31:00 115 mm[Hg] Univer sity of pressure [place] [facility] Diastolic blood 2022-07-05 15:31:00 74 mm[Hg] Unive rsity of pressure [place] [facility] Heart rate 2022-07-05 15:31:00 80 /min [facility] [place] [facility] Body temperature 2022-07-05 15:31:00 36.56 Martina Univ ersity [facility] [place] [facility] Respiratory rate 2022-07-05 15:31:00 18 /min Univ ersity [facility] [place] [facility] Body height 2022-07-05 15:31:00 152.4 cm [facility] [place] [facility] Body weight 2022-07-05 15:31:00 59.223 kg [facility] [place] [facility] BMI 2022-07-05 15:31:00 25.50 kg/m2 [facility] [place] [facility] Systolic blood 2022-06-30 15:00:00 109 mm[Hg] Univer sity of pressure [place] [facility] Diastolic blood 2022-06-30 15:00:00 76 mm[Hg] Unive rsity of pressure [place] [facility] Heart rate 2022-06-30 15:00:00 86 /min [facility] [place] [facility] Body temperature 2022-06-30 15:00:00 36.5 Martina Univ ersity [facility] [place] [facility] Respiratory rate 2022-06-30 15:00:00 18 /min [facility] Body weight 2022-06-30 15:00:00 59.512 kg Universi [facility] BMI 2022-06-30 15:00:00 25.62 kg/m2 [facility] Systolic blood 2022-05-03 14:43:00 115 mm[Hg] Univer sity of pressure [facility] Diastolic blood 2022-05-03 14:43:00 69 mm[Hg] Unive rsity of [facility] Heart rate 2022-05-03 14:43:00 79 /min [facility] Body temperature 2022-05-03 14:43:00 36.44 Martina [facility] Respiratory rate 2022-05-03 14:43:00 20 /min [facility] Body height 2022-05-03 14:43:00 152.4 cm [facility] Body weight 2022-05-03 14:43:00 60.646 kg [facility] BMI 2022-05-03 14:43:00 26.11 kg/m2 [facility] Procedures Procedure Date / Time Performed Performing Clinician [facility] e POCT TEST 2022-10-25 00:00:00 Jackie Paul [facility] POCT TEST 2022-06-30 15:01:00 Jackie Paul [facility] GARDASIL 9 (HPV 9V) 2022-05-03 14:35:32 Alexandru Martinez [facility] [place] VACCINE [facility] Encounters Start End Encounter Admission Attending Care Care Encounter Source Date/Time Date/Time Type Type Clinicians Facility Department ID 2021-09-29 Emergency [facility] [id number] [facility]-01-17 2023-01-17 Outpatient R [facility] [id number] Univers 08:30:00 08:30:[facility] 2022-10-25 2022-10-25 Outpatient R BK [facility] [id number] Univers 15:00:00 15:19:33 JACKIE parker [facility] 2022-10-25 2022-10-25 Nurse Visit, Alec Nurse [facility] 1.2 .840.114 [id number] [facility] [place] [facility] 15:00:00 15:19:33 Visit Jesusalexia Jackie Haywood [employer] 350.1.13. 10 ity of REGIONAL 4.2.7.2.686 Velas[place] as MATERNAL [id number] [facility] [address] [place] [address] 2022-10-25 2022-10-25 [facility] [id number] Univers 00:00:00 00:00:00 Alexandru R [employer] 350.1.13.10 ity of REGIONAL [id number] [place] as MATERNAL [id number] [facility] & [address] 2022-10-25 2022-10-25 Letter Bk [facility] [id number] Univers 00:00:00 00:00:00 (Out) Jackie Haywood [employer] 350.1.13.10 ity of REGIONAL 4.2.7.2.686 [place] as MATERNAL [id number] [address] 2022-10-05 2022-10-05 Outpatient R BK [facility] [id number] Univers 09:00:00 09:00:00 JACKIE parker [facility] 2022-07-05 2022-07-05 Nurse Visit, Alec Nurse [facility] 1.2 .840.114 [id number] [facility] [place] [facility] 10:00:00 10:42:18 Visit Jackie Paul [employer] 350.1.13. 10 ity of REGIONAL 4.2.7.2.686 Velas[place] as MATERNAL [id number] [facility] & [address] 2022-07-05 2022-07-05 Outpatient R [facility] [id number] Univers 10:00:00 10:00:00 ity of [facility] 2022-07-05 2022-07-05 [facility] [id number] Univers 10:00:00 10:00:00 JACKIE may o elena [facility] 2022-06-30 2022-06-30 Nurse Visit, Opalsaul Nurse [facility] 1.2 .840.114 [id number] Univers 10:00:00 10:15:00 Visit Jackie Paul [employer] 350.1.13. 10 ity of [facility] 4.2.7.2.686 Velasquez as MATERNAL [id number] [facility] ical & CHILD [address] [place] [address] 2022-06-30 2022-06-30 [facility] [id number] Univers 10:00:00 10:00:00 JACKIE parker [facility] 2022-06-30 2022-06-30 Juan A Martinez [facility] 1.2.840.114 [id number] Univers 00:00:00 00:00:00 (Out) Alexandru R [employer] 350.1.13.10 ity of [facility] 4.2.7.2.686 Velasquez as MATERNAL [id number] [facility] [address] [place] [address] 2022-05-03 2022-05-03 Outpatient R BK [facility] [id number] Univers 09:30:00 09:50:32 JACKIE parker [facility] 2022-05-03 2022-05-03 Nurse Visit, Opalsaul Nurse [facility] 1.2 .840.114 [id number] Univers 09:30:00 09:50:32 Visit Jackie Paul [employer] 350.1.13. 10 ity of [facility] 4.2.7.2.686 Velasquez as MATERNAL [id number] [facility] [address] [place] [address] 2022-05-03 2022-05-03 Outpatient R [facility] [id number] Univers 09:30:00 09:30:00 ity [facility] 2022-05-03 2022-05-03 Outpatient R [facility] [id number] Univers 09:30:00 09:30:00 ity [facility] 2022-05-03 2022-05-03 Letter Bk [facility] [id number] Univers 00:00:00 00:00:00 (Out) Jackie Haywood [employer] 350.1.13.10 ity of REGIONAL 4.2.7.2.686 Velas[place] as MATERNAL [id number] [facility] ical & CHILD [address] [place] [address] 2022-04-30 2022-04-30 Orders Doctor JASON 1.2.840.114 [id number] Univers 00:00:00 00:00:00 Only Unassigned, MUKESH 350.1.13.10 ity of [facility] 4.2.7.2.686 Velasquez as [id number] [address] 2022-04-12 2022-04-12 [facility] [id number] Univers 09:30:00 10:04:20 JACKIE may o f [facility] 2022-04-12 2022-04-12 Nurse Visit, [facility] Nurse [facility] 1.2 .840.114 [id number] Univers 09:30:00 10:04:20 Visit Jackie Paul [employer] 350.1.13. 10 ity of REGIONAL 4.2.7.2.686 Velas[place] as MATERNAL [id number] [facility] & [address] 2022-04-12 2022-04-12 Outpatient R [facility] [id number] Univers 09:30:00 09:30:00 ity of [facility] 2022-04-12 2022-04-12 Letter [facility] [id number] Univers 00:00:00 00:00:00 (Out) Jackie Haywood [employer] 350.1.13.10 ity of REGIONAL 4.2.7.2.686 [place] as MATERNAL [id number] [facility] & CHILD [address] [place] [address] 2022-04-12 2022-04-12 Orders Doctor JASON 1.2.840.114 [id number] Univers 00:00:00 00:00:00 Only Unassigned, MUKESH 350.1.13.10 ity of [facility] 4.2.7.2.686 Velasquez as [id number] [facility] [address] 2022-03-02 2022-03-02 Office [facility] 1.2.840.114 [id number] Univers 07:45:00 09:13:40 Visit Alexandru Marbella [employer] 350.1.13.10 ity of [facility] 4.2.7.2.686 Velasquez as MATERNAL [id number] Med ical & CHILD [address] [place] [address] 2022-03-02 2022-03-02 Outpatient Marbella REENA [facility] [id number] Univers 07:45:00 09:13:40 [facility] ity o [facility] 2022-03-02 2022-03-02 Outpatient [facility]bella [facility] [id number] Univers 07:45:00 09:13:40 [facility] aubreyy o [facility] 2022-03-02 2022-03-02 Orders Doctor JASON 1.2.840.114 [id number] Univers 00:00:00 00:00:00 Only Unassigned, MUKESH 350.1.13.10 ity of [place] [facility] 4.2.7.2.686 Velasquez as [id number] [facility] [address] 2021-09-06 2021-09-07 Emergency [facility] 1.2.840.114 [id number] Univers 23:39:00 01:20:00 Mariam Saldana 350.1.13.10 ity of [place]7.2.686 [place] [id number] [facility] [address] 2021-03-07 2021-03-07 Outpatient [facility] [id number] Univers 14:05:00 14:05:00 ity [facility] 2021-02-14 2021-02-14 Outpatient Marbella HOLDEN [facility] [id number] Univers 13:50:00 13:50:00 CARRIE [facility] Results Test Description Test Time Test Comments Results Result Comments Source POCT TEST 2022-10-25 21:20:00 Test Item Value Reference Range Interpretation Comme nts POCT PREG (test code = 1605) Negative On board controls acceptable with C Line (test code = 3574) Yes POCT PREG LOT # (test code = 3575) POCT PREG TEST DATE (test code = 3576) [facility] [id number] 15:01:00 Test Item Value Reference Range Interpretation Comments POCT PREG (test code = 1605) Negative On board controls acceptable with C Yes Line (test code = 3574) POCT PREG LOT # (test code = 3575) POCT PREG TEST DATE (test code = 3576) [facility] ([facility]), RT-PCR/[id number] 10:57:17 Test Item Value Reference Interpretation Comments Range SARS-CoV-2 NEGATIVE SEE NOTE SARS-CoV-2 RNA NOT INTERPRETATION DETECTEDNegat theresa (test code = 05075) results do not preclude SARS-C oV-2 infection and s hould notbe used as t he sole basis for patie nt management deci sions. Negativeresults must be combined wit h clinical observ ations, patient history ,and epidemiological information. Op timum specimen types and timingfor peak viral levels during infections caus ed by SARS-CoV-2 have notbeen determi haley. Collection of m ultiple specimens or ty pes ofspecimens may be necessary to de tect virus. Improper specimencollect ion and handling, seque nce variability und er primers/probes, or organism presen t below the limit of de tection may lead to falsenegative r esults. Positive and ne gative predictive valu es oftesting are h ighly dependent on prevalence. Fal se negative testre sults are more likely when prevalence is h igh. SOURCE (test code = NASOPHARYNGEAL Note: [place] [address]) Samir Kimberly Naoma l-Time RT-PCR. The exp ected result or refer ence range is NEGATI VE (Not Detected). For more information reg arding COVID-19 testin g to include clinicalinforma tion, methodology det ail, intended use, F DA authorization andrecommended fact sheets for kilo ents or healthcare prov iders, see NewTest Announcement: SARS-CoV-2 (COV ID-19) by NAAT at URL below (note,fact shee ts are provided by met hod given in report:https:// www.[facility].com/clinic ians/cl ient-communicat ions/ Alternatively, see downloadable PD F fact sheet at:https://www. [employer] .Soci Ads/COVID-19-R T-PCR UNLESS OTHERWIS E INDICATED, ALL TESTING PERFORMED [facility], [facility]. [address] [place] [id number] [facility] [place] [employer] DIRECTOR: BELEM ABARCA M.D. CLIA NUMBER [id number] CAP ACCREDITATION N O. [id number]
--- NOTE | 2022-11-24 18:14 | ER ---
Nurse's Notes [facility] Name: Roopa Mcclure Age: 27 yrs Sex: Female : 1995 Arrival Date: 11/24/2022 Time: 14:40 Bed External Waiting Private MD: Diagnosis: ED Course: 11/24 14:40 Patient arrived in ED. am2 15:18 Kiarra Cleary [facility]C [facility] snw 15:18 Dewey Carranza MD is Attending Physician. snw Administered Medications: No medications were administered Outcome: 18:13 Patient left the ED. ss Signatures: Kiarra Cleary FNP-C BLOCK BOLTER MULE OPERATOR-Csnw Karla Hooks RN RN Nathalia Holden am2
--- NOTE | 2022-11-24 18:14 | EDPHYS ---
Physician Documentation [facility] Name: Roopa Mcclure Age: 27 yrs Sex: Female : 1995 Arrival Date: 11/24/2022 Time: 14:40 Bed External Waiting Private MD: ED Physician MDM: 11/24 17:13 ED course: left prior to triage. snw Administered Medications: No medications were administered Disposition Summary: 11/24/22 18:13 Eloped Disposition: before being seen by provider ss Reason: wait time ss Signatures: Kiarra Cleary FNP-C FNP-Karla Abbott RN RN ss
== END 2022-11-24 18:13 | disposition left against medical advice (07) ==
LOC: ER 14:36
DX: Z02.9 Encounter for administrative examinations, unspecified (principal)

== ENCOUNTER 2023-05-13 16:55 | Emergency (ER) | payer OTHER ==
--- OUTSIDE RECORDS SUMMARY | 2023-05-13 16:59 | XMS REPORT | Continuity of Care Document ---
:1995 Author Organization [facility] t Address [address] [place] [address] [address] [place] [address] Care Team Providers Name Role Phone CAROLANN HANCOCK Primary Care Physician Unavailable CAROLANN HANCOCK Attending Clinician Unavailable JACKIE BOURGEOIS Attending Clinician Unavailable Carolann Hancock CNM Attending Clinician Doctor Unassigned, Goff Attending Clinician Unavailable Bk Jackie BAKER Attending Clinician [phone] NIDHI BULLARD Attending Clinician Unavailable NILAM CENTENO Attending Clinician Unavailable NILAM CENTENO Attending Clinician Unavailable Provider, Alec Temp Attending Clinician Unavailable Alexandru Resendiz Attending Clinician Visit, Alec Nurse Attending Clinician Unavailable ALEXANDRU VALLES Attending Clinician Unavailable Mariam Neri DO Attending Clinician CARRIE HOLDEN Attending Clinician Unavailable CAROLANN HANCOCK Admitting Clinician Unavailable Payers Payer Name Policy Type Policy Number Effective Date Expiration Date Lissette sherrybart [place] [id number] 2019 00:00:00 [facility] [id number] 2019 CHOICE MEDICAID 00:00:00 [facility] [id number] 2023 STAR 00:00:00 Problems Condition Condition Condition Status Onset Resolution Last Treating Co mments Source Name Details Category Date Date Treatment Clinician Date History of History of Disease Active U nivers asthma asthma 6-07 ity of 00:00: [place] 00 Medical Branch Cramping Cramping Disease Active Unive rs affecting affecting 6-07 [place]y [place] , [place] antepartum antepartum 00 Me dical Branch Other Other Disease Active Univers general general 5- ity of counseling [place] and advice and advice 00 Me dical for for Branch contracept contracept theresa theresa management management Anxiety Anxiety Disease Active Univers and and 5-23 ity of depression [place] Acute Acute Disease Active Univers cystitis cystitis 2-13 ity of without without 00:00: [place] hematuria hematuria 00 [facility] History of History of Disease Active U nivers depression depression 2-12 it y of 00:00: [place] 00 Medical Branch History of History of Disease Active U nivers anxiety anxiety 2-12 ity of and and 00:00: [place] depression depression 00 Me [facility] Branch Nausea and Nausea and Disease Active U nivers vomiting vomiting 5-28 ity of during during 00:00: [place] 00 [facility] GBS (group GBS (group Disease Active Overview : Univers B B 5 Formattin ity of streptococ streptococ 00:00: g of this [place] cus) UTI cus) UTI 00 note Medica l complicati complicati might be Branch ng ng different from the original. pending ERASMO Supervisio Supervisio Disease Active U nivers n of n of 4-29 ity of high-risk high[place]risk [place] [facility] Multiparit Multiparit Disease Active U nivers y y 4-29 ity of 00:00: [place] 00 Medical Branch History of History of Disease Active Overview : Univers 4-29 Formattin ity of section section 00:00: g [...] Active Univers ALLERGIE Class ity of S [facility] Social History Social Habit Start Date Stop Date Quantity Comments Source ASSERTION 2023-04-14 [facility] 00:00:00 [place] [facility] [place] [facility] Frequency [place] [facility] ed[facility] History SDNE University o f Alcohol Std [place] [facility] Drinks Branch History [facility] o f Alcohol Binge [place] [facility] al [place] Exposure to 2023-04-24 2023-05-04 Not sure [facility] SARS-CoV-2 00:00:00 07:31:00 [facility] (event) [place] Alcohol intake 2023-05-04 2023-05-04 Ex-drinker [facility] 00:00:00 00:00:00 (finding) [facility] Tobacco Comment 2022-07-05 2022-07-05 vaping on Universit y of 00:00:00 00:00:00 occassion [facility] Tobacco use and 2022-07-05 2022-07-05 Smokeless tobacco Un iversity of exposure 00:00:00 00:00:00 non-user [facility] Alcohol Comment 2018-05-24 2018-05-24 social Universit y of 00:00:00 00:00:00 [facility] Sex Ass[birth year] At [birth year] Universit y of 00:00:00 00:00:00 [facility] Smoking Status Start Date Stop Date Source Never smoked tobacco [facility] Medications Ordered Filled Start Stop Current Ordering Indication Dosage Frequency Signature Comments Components Source Medication Medication Date Date Medication? Clinician (SIG) Name Name proMETHazin Yes [id number] 25mg Take 1 Univers e 25 mg 6-07 tablet by ity of tablet 00:00: mouth [place] 00 every 4 Medical (four) Branch hours as needed for Nausea and Vomiting (N/V). norethindro Yes [id number] 1{tbl} Take 1 Univers ne-e.estrad 2-17 tablet by ity of ioL-iron 00:00: mouth in [place] (MICROGESTI 00 the Medical N FE) 1.5 morning. Branch mg-30 mcg (21)/75 mg (7) per tablet norethindro 2023-0 Yes [id number] 1{tbl} Take 1 Univers ne-e.estrad 2-17 tablet by ity of ioL-iron 00:00: mouth in [place] (MICROGESTI [address] [place] [address]) 1.5 morning. Branch mg-30 mcg (21)/75 mg (7) per tablet norethindro 2023-0 Yes [id number] 1{tbl} Take 1 Univers ne-e.estrad 2-17 tablet by ity of ioL-iron 00:00: mouth in [place] ([address]) 1.5 morning. Branch mg-30 mcg (21)/75 mg (7) per tablet norethindro 2023-0 Yes [id number] 1{tbl} Take 1 Univers ne-e.estrad 2-17 tablet by ity of ioL-iron 00:00: mouth in [place] ([address]) 1.5 morning. Branch mg-30 mcg (21)/75 mg (7) per tablet norethindro 2023-0 Yes [id number] 1{tbl} Take 1 Univers ne-e.estrad 2-17 tablet by ity of ioL-iron 00:00: mouth in [place] [facility] 1.5 morning. Branch mg-30 mcg (21)/75 mg (7) per tablet norethindro 2023-0 Yes [id number] 1{tbl} Take 1 Univers ne-e.estrad 2-17 tablet by ity of ioL-iron 00:00: mouth in [place] [facility] [address] [place] [address]) 1.5 morning. Branch mg-30 mcg (21)/75 mg (7) per tablet norethindro 2023-0 Yes [id number] 1{tbl} Take 1 Univers ne-e.estrad 2-17 tablet by ity of ioL-iron 00:00: mouth in [place] [facility] [address] [place] [address]) 1.5 morning. Branch mg-30 mcg (21)/75 mg (7) per tablet norethindro 2023-0 Yes [id number] 1{tbl} Take 1 Univers ne-e.estrad 2-17 tablet by ity of ioL-iron 00:00: mouth in [place] (MICROGESTI 00 the Medical N FE) 1.5 morning. Branch mg-30 mcg (21)/75 mg (7) per tablet norethindro 2022- No [id number] 1{tbl} Take 1 Univers ne-e.estrad 2-17 06-07 tablet by it y of ioL-iron 00:00: 00:00 mouth in [facility] (MICROGESTI 00 :00 the Medical N FE) 1.5 morning. Branch mg-30 mcg (21)/75 mg (7) per tablet Nitrofurant 0 2022- No [id number] 100mg Take 1 Univers oin&Nit. 2-13 -24 capsule by ity of Macrocryst 00:00: 05:59 [place] (MACROBID[place] 00 :00 the Medical 100 mg morning Branch capsule and 1 capsule in the evening. Do all this for 10 days. Nitrofurant 2022-0 2022- No [id number] 100mg Take 1 Univers oin&Nit. 2-13 -24 capsule by ity of Macrocryst 00:00: 05:59 [place] (MACROBID[place] 00 :00 the Medical 100 mg morning Branch capsule and 1 capsule in the evening. Do all this for 10 days. Nitrofurant 2022-0 2022- No [id number] 100mg Take 1 Univers oin&Nit. 2-13 -24 capsule by ity of Macrocryst 00:00: 05:59 [place] (MACROBID[place] 00 :00 the Medical 100 mg morning Branch capsule and 1 capsule in the evening. Do all this for 10 days. Nitrofurant 2022-0 2022- No [id number] 100mg Take 1 Univers oin&Nit. 2-13 -24 capsule by ity of Macrocryst 00:00: 05:59 [place] (MACROBID[place] 00 :00 the Medical 100 mg morning Branch capsule and 1 capsule in the evening. Do all this for 10 days. medroxyPROG 3- No [id number] 150mg Univers ESTERone 5-16 04-17 ity of (DEPO-PROVE 15:15: 15:14 [facility]) 00 :00 Medical injection Branch 150 mg medroxyPROG 2022-0 3- No [id number] 150mg Univers ESTERone 5-16 04-17 ity of (DEPO-PROVE 15:15: 15:14 [place] RA) 00 :00 Medical injection Branch 150 mg medroxyPROG 2022-0 3- No [id number] 150mg Univers ESTERone 5-16 04-17 ity of (DEPO-PROVE 15:15: 15:14 [place] [facility]) 00 :00 Medical injection Branch 150 mg medroxyPROG 2022-0 2022- No [id number] 150mg Univers ESTERone 5-16 04-17 ity of (DEPO-PROVE 15:15: 15:14 [place] [facility]) 00 :00 Medical injection Branch 150 mg medroxyPROG 2022-0 2022- No [id number] 150mg 150 mg, Univers ESTERone 5-16 04-17 Intramuscu ity of (DEPO-PROVE 15:15: 15:14 lar, [place] RA) 00 :00 [id number], Medical injection 4 doses, Branch 150 mg First dose on Tue04/12/22 at 1015, Last dose on Tue12/20/22 at 1015, Routine medroxyPROG 2022-0 3- No [id number] 150mg Univers ESTERone 5-16 04-17 ity of (DEPO-PROVE 15:15: 15:14 [place] [facility]) 00 :00 Medical injection Branch 150 mg medroxyPROG 2022-0 3- No [id number] 150mg Univers ESTERone 5-16 04-17 ity of (DEPO-PROVE 15:15: 15:14 [place] [facility]) 00 :00 Medical injection Branch 150 mg medroxyPROG 2022-0 3- No [id number] 150mg 150 mg, Univers ESTERone 5-16 04-17 Intramuscu ity of (DEPO-PROVE 15:15: 15:14 [place], [place] [facility]) 00 :00 [id number], Medical injection 4 doses, Branch 150 mg First dose on Tue04/12/22 at 1015, Last dose on Tue12/20/22 at 1015, Routine medroxyPROG 2022-0 3- No [id number] 150mg Univers ESTERone 5-16 04-17 ity of (DEPO-PROVE 15:15: 15:14 [place] [facility]) 00 :00 Medical injection Branch 150 mg medroxyPROG 2022-0 3- No [id number] 150mg Univers ESTERone 5-16 04-17 ity of (DEPO-PROVE 15:15: 15:14 [place] RA) 00 :00 Medical injection Branch 150 mg medroxyPROG 2022-0 3- No [id number] 150mg Univers ESTERone 5-16 04-17 ity of (DEPO-PROVE 15:15: 15:14 [place] RA) 00 :00 Medical injection Branch 150 mg medroxyPROG 2022-0 3- No [id number] 150mg Univers ESTERone 5-16 02-13 ity of (DEPO-PROVE 15:15: 02:39 [place] RA) 00 :25 Medical injection Branch 150 mg medroxyPROG 2022-0 3- No [id number] 150mg Univers ESTERone 5-16 02-13 ity of (DEPO-PROVE 15:15: 02:39 [place] RA) 00 :25 Medical injection Branch 150 mg medroxyPROG 2022-0 3- No [id number] 150mg Univers ESTERone 5-16 02-13 ity of (DEPO-PROVE 15:15: 02:39 [place] RA) 00 :25 Medical injection Branch 150 mg Immunizations Ordered Filled Immunization Date Status Comments [facility] e Immunization Name Name HPV9 2023-04-19 Completed University of 00:00:00 [facility] HPV9 2023-04-19 Completed University of 00:00:00 [facility] HPV9 2023-04-19 Completed University of 00:00:00 [facility] HPV9 2023-04-19 Completed University of 00:00:00 [facility] HPV9 2023-04-19 Completed University of 00:00:00 [facility] HPV9 2023-04-19 Completed University of 00:00:00 [facility] HPV9 2023-04-19 Completed University of 00:00:00 [facility] HPV9 2022-05-03 Completed University of 00:00:00 [facility] HPV9 2022-05-03 Completed University of 00:00:00 [facility] HPV9 2022-05-03 Completed University of 00:00:00 [facility] HPV9 2022-05-03 Completed University of 00:00:00 [facility] HPV9 2022-05-03 Completed University of 00:00:00 [place] [facility] HPV9 2022-05-03 Completed University of 00:00:00 [place] [facility] HPV9 2022-05-03 Completed University of 00:00:00 [place] [facility] HPV9 2022-05-03 Completed University of 00:00:00 [place] [facility] HPV9 2022-05-03 Completed University of 00:00:00 [place] [facility] HPV9 2022-05-03 Completed University of 00:00:00 [place] [facility] HPV9 2022-05-03 Completed University of 00:00:00 [place] [facility] HPV9 2022-05-03 Completed University of 00:00:00 [place] [facility] HPV9 2022-05-03 Completed University of 00:00:00 [place] [facility] HPV9 2022-05-03 Completed University of 00:00:00 [place] [facility] HPV9 2022-05-03 Completed University of 00:00:00 [place] [facility] HPV9 2022-05-03 Completed University of 00:00:00 [place] [facility] HPV9 2022-05-03 Completed University of 00:00:00 [place] [facility] HPV9 2022-05-03 Completed University of 00:00:00 [place] [facility] HPV9 2022-05-03 Completed University of 00:00:00 [place] [facility] HPV9 2022-05-03 Completed University of 00:00:00 [place] [facility] HPV9 2022-05-03 Completed University of 00:00:00 [place] [facility] HPV9 2022-05-03 Completed University of 00:00:00 [place] [facility] HPV9 2022-05-03 Completed University of 00:00:00 [place] [facility] HPV9 2022-05-03 Completed University of 00:00:00 [place] [facility] HPV9 2022-03-02 Completed University of 00:00:00 [place] [facility] HPV9 2022-03-02 Completed University of 00:00:00 [place] [facility] HPV9 2022-03-02 Completed University of 00:00:00 [place] [facility] HPV9 2022-03-02 Completed University of 00:00:00 [place] [facility] HPV9 2022-03-02 Completed University of 00:00:00 [place] [facility] HPV9 2022-03-02 Completed University of 00:00:00 [place] [facility] HPV9 2022-03-02 Completed University of 00:00:00 [facility] Branch HPV9 2022-03-02 Completed University of 00:00:00 [place] [facility] HPV9 2022-03-02 Completed University of 00:00:00 [place] [facility] HPV9 2022-03-02 Completed University of 00:00:00 [place] [facility] HPV9 2022-03-02 Completed University of 00:00:00 [place] [facility] HPV9 2022-03-02 Completed University of 00:00:00 [place] [facility] HPV9 2022-03-02 Completed University of 00:00:00 [place] [facility] HPV9 2022-03-02 Completed University of 00:00:00 [place] [facility] HPV9 2022-03-02 Completed University of 00:00:00 [place] [facility] HPV9 2022-03-02 Completed University of 00:00:00 [place] [facility] HPV9 2022-03-02 Completed University of 00:00:00 [facility] Branch HPV9 2022-03-02 Completed University of 00:00:00 [place] [facility] HPV9 2022-03-02 Completed University of 00:00:00 [place] [facility] HPV9 2022-03-02 Completed University of 00:00:00 [place] [facility] HPV9 2022-03-02 Completed University of 00:00:00 [facility] Branch HPV9 2022-03-02 Completed University of 00:00:00 [facility] HPV9 2022-03-02 Completed University of 00:00:00 [facility] HPV9 2022-03-02 Completed University of 00:00:00 [facility] SARS-COV-2 COVID-19 2021-05-25 Completed Unive rsity of PFIZER VACCINE 00:00:00 [facility] SARS-COV-2 COVID-19 2021-05-25 Completed Unive rsity of PFIZER VACCINE 00:00:00 [facility] SARS-COV-2 COVID-19 2021-05-25 Completed Unive rsity of PFIZER VACCINE 00:00:00 [facility] SARS-COV-2 COVID-19 2021-05-25 Completed Unive rsity of PFIZER VACCINE 00:00:00 [facility] SARS-COV-2 COVID-19 2021-05-25 Completed Unive rsity of PFIZER VACCINE 00:00:00 [facility] SARS-COV-2 COVID-19 2021-05-25 Completed Unive rsity of PFIZER VACCINE 00:00:00 [facility] SARS-COV-2 COVID-19 2021-05-25 Completed Unive rsity of PFIZER VACCINE 00:00:00 [facility] Branch SARS-COV-2 COVID-19 2021-05-25 Completed Unive rsity of PFIZER VACCINE 00:00:00 [facility] SARS-COV-2 COVID-19 2021-05-25 Completed Unive rsity of PFIZER VACCINE 00:00:00 [facility] Branch SARS-COV-2 COVID-19 2021-05-25 Completed Unive rsity of PFIZER VACCINE 00:00:00 [facility] SARS-COV-2 COVID-19 2021-05-25 Completed Unive rsity of PFIZER VACCINE 00:00:00 [facility] SARS-COV-2 COVID-19 2021-05-25 Completed Unive rsity of PFIZER VACCINE 00:00:00 [facility] SARS-COV-2 COVID-19 2021-05-25 Completed Unive rsity of PFIZER VACCINE 00:00:00 [facility] SARS-COV-2 COVID-19 2021-05-25 Completed Unive rsity of PFIZER VACCINE 00:00:00 [facility] SARS-COV-2 COVID-19 2021-05-25 Completed Unive rsity of PFIZER VACCINE 00:00:00 [facility] SARS-COV-2 COVID-19 2021-05-25 Completed Unive rsity of PFIZER VACCINE 00:00:00 [facility] SARS-COV-2 COVID-19 2021-05-25 Completed Unive rsity of PFIZER VACCINE 00:00:00 [facility] SARS-COV-2 COVID-19 2021-05-25 Completed Unive rsity of PFIZER VACCINE 00:00:00 [facility] SARS-COV-2 COVID-19 2021-05-25 Completed Unive rsity of PFIZER VACCINE 00:00:00 [facility] SARS-COV-2 COVID-19 2021-05-25 Completed Unive rsity of PFIZER VACCINE 00:00:00 [facility] SARS-COV-2 COVID-19 2021-05-25 Completed Unive rsity of PFIZER VACCINE 00:00:00 [facility] Branch SARS-COV-2 COVID-19 2021-05-25 Completed Unive rsity of PFIZER VACCINE 00:00:00 [facility] Branch SARS-COV-2 COVID-19 2021-05-25 Completed Unive rsity of PFIZER VACCINE 00:00:00 [facility] Branch SARS-COV-2 COVID-19 2021-05-25 Completed Unive rsity of PFIZER VACCINE 00:00:00 [facility] Branch SARS-COV-2 COVID-19 2021-02-14 Completed Unive rsity of PFIZER VACCINE 00:00:00 [facility] Branch SARS-COV-2 COVID-19 2021-02-14 Completed Unive rsity of PFIZER VACCINE 00:00:00 [facility] Branch SARS-COV-2 COVID-19 2021-02-14 Completed Unive rsity of PFIZER VACCINE 00:00:00 [facility] Branch SARS-COV-2 COVID-19 2021-02-14 Completed Unive rsity of PFIZER VACCINE 00:00:00 [facility] Branch SARS-COV-2 COVID-19 2021-02-14 Completed Unive rsity of PFIZER VACCINE 00:00:00 [facility] Branch SARS-COV-2 COVID-19 2021-02-14 Completed Unive rsity of PFIZER VACCINE 00:00:00 [facility] Branch SARS-COV-2 COVID-19 2021-02-14 Completed Unive rsity of PFIZER VACCINE 00:00:00 [facility] Branch SARS-COV-2 COVID-19 2021-02-14 Completed Unive rsity of PFIZER VACCINE 00:00:00 [facility] Branch SARS-COV-2 COVID-19 2021-02-14 Completed Unive rsity of PFIZER VACCINE 00:00:00 [facility] Branch SARS-COV-2 COVID-19 2021-02-14 Completed Unive rsity of PFIZER VACCINE 00:00:00 [facility] Branch SARS-COV-2 COVID-19 2021-02-14 Completed Unive rsity of PFIZER VACCINE 00:00:00 [facility] SARS-COV-2 COVID-19 2021-02-14 Completed Unive rsity of PFIZER VACCINE 00:00:00 [facility] Branch SARS-COV-2 COVID-19 2021-02-14 Completed Unive rsity of PFIZER VACCINE 00:00:00 [facility] SARS-COV-2 COVID-19 2021-02-14 Completed Unive rsity of PFIZER VACCINE 00:00:00 [facility] SARS-COV-2 COVID-19 2021-02-14 Completed Unive rsity of PFIZER VACCINE 00:00:00 [facility] SARS-COV-2 COVID-19 2021-02-14 Completed Unive rsity of PFIZER VACCINE 00:00:00 [facility] SARS-COV-2 COVID-19 2021-02-14 Completed Unive rsity of PFIZER VACCINE 00:00:00 [facility] SARS-COV-2 COVID-19 2021-02-14 Completed Unive rsity of PFIZER VACCINE 00:00:00 [facility] SARS-COV-2 COVID-19 2021-02-14 Completed Unive rsity of PFIZER VACCINE 00:00:00 [facility] SARS-COV-2 COVID-19 2021-02-14 Completed Unive rsity of PFIZER VACCINE 00:00:00 [facility] SARS-COV-2 COVID-19 2021-02-14 Completed Unive rsity of PFIZER VACCINE 00:00:00 [facility] SARS-COV-2 COVID-19 2021-02-14 Completed Unive rsity of PFIZER VACCINE 00:00:00 [facility] SARS-COV-2 COVID-19 2021-02-14 Completed Unive rsity of PFIZER VACCINE 00:00:00 [facility] SARS-COV-2 COVID-19 2021-02-14 Completed Unive rsity of PFIZER VACCINE 00:00:00 [facility] Influenza Virus 2018-11-01 Completed Universit y of Vaccine Quad IM 3+ 00:00:00 [facility] Influenza Virus 2018-11-01 Completed Universit y of Vaccine Quad IM 3+ 00:00:00 [facility] Influenza Virus 2018-11-01 Completed Universit y of Vaccine Quad IM 3+ 00:00:00 [facility] Influenza Virus 2018-11-01 Completed Universit y of Vaccine Quad IM 3+ 00:00:00 [facility] Influenza Virus 2018-11-01 Completed Universit y of Vaccine Quad IM 3+ 00:00:00 [facility] Influenza Virus 2018-11-01 Completed Universit y of Vaccine Quad IM 3+ 00:00:00 [facility] Influenza Virus 2018-11-01 Completed Universit y of Vaccine Quad IM 3+ 00:00:00 [facility] Influenza Virus 2018-11-01 Completed Universit y of Vaccine Quad IM 3+ 00:00:00 [facility] Influenza Virus 2018-11-01 Completed Universit y of Vaccine Quad IM 3+ 00:00:00 [facility] Influenza Virus 2018-11-01 Completed Universit y of Vaccine Quad IM 3+ 00:00:00 [facility] Influenza Virus 2018-11-01 Completed Universit y of Vaccine Quad IM 3+ 00:00:00 [facility] Influenza Virus 2018-11-01 Completed Universit y of Vaccine Quad IM 3+ 00:00:00 [facility] Influenza Virus 2018-11-01 Completed Universit y of Vaccine Quad IM 3+ 00:00:00 [facility] Influenza Virus 2018-11-01 Completed Universit y of Vaccine Quad IM 3+ 00:00:00 [facility] Influenza Virus 2018-11-01 Completed Universit y of Vaccine Quad IM 3+ 00:00:00 [facility] Influenza Virus 2018-11-01 Completed Universit y of Vaccine Quad IM 3+ 00:00:00 [facility] Influenza Virus 2018-11-01 Completed Universit y of Vaccine Quad IM 3+ 00:00:00 [facility] Influenza Virus 2018-11-01 Completed Universit y of Vaccine Quad IM 3+ 00:00:00 [facility] Influenza Virus 2018-11-01 Completed Universit y of Vaccine Quad IM 3+ 00:00:00 [facility] Influenza Virus 2018-11-01 Completed Universit y of Vaccine Quad IM 3+ 00:00:00 [facility] Influenza Virus 2018-11-01 Completed Universit y of Vaccine Quad IM 3+ 00:00:00 [facility] Influenza Virus 2018-11-01 Completed Universit y of Vaccine Quad IM 3+ 00:00:00 [facility] Influenza Virus 2018-11-01 Completed Universit y of Vaccine Quad IM 3+ 00:00:00 [facility] Influenza Virus 2018-11-01 Completed Universit y of Vaccine Quad IM 3+ 00:00:00 [facility] Vital Signs Vital Name Observation Time Observation Value Comments Source Systolic blood 2023-05-04 12:56:00 116 mm[Hg] Univer sity of pressure [place] [facility] Diastolic blood 2023-05-04 12:56:00 77 mm[Hg] Unive rsity of pressure [place] [facility] Heart rate 2023-05-04 12:56:00 84 /min [facility] [place] [facility] Body temperature 2023-05-04 12:56:00 36.89 Martina Univ ers[facility] [place] [facility] Respiratory rate 2023-05-04 12:56:00 17 /min Univ ers[facility] [place] [facility] Body height 2023-05-04 12:56:00 152.4 cm [facility] [place] [facility] Body weight 2023-05-04 12:56:00 69.945 kg [facility] [place] [facility] BMI 2023-05-04 12:56:00 30.12 kg/m2 [facility] [place] [facility] Systolic blood 2023-04-19 14:20:00 119 mm[Hg] Univer sity of pressure [place] [facility] Diastolic blood 2023-04-19 14:20:00 78 mm[Hg] Unive rsity of pressure [place] [facility] Heart rate 2023-04-19 14:20:00 80 /min [facility] [place] [facility] Body temperature 2023-04-19 14:20:00 36.5 Martina Univ [facility] [place] [facility] Respiratory rate 2023-04-19 14:20:00 18 /min Univ ers[facility] [place] [facility] Body height 2023-04-19 14:20:00 152.4 cm [facility] Body weight 2023-04-19 14:20:00 71.26 kg [facility] BMI 2023-04-19 14:20:00 30.68 kg/m2 [facility] Systolic blood 2023-01-06 20:51:00 121 mm[Hg] [facility] Diastolic blood 2023-01-06 20:51:00 80 mm[Hg] [facility] Heart rate 2023-01-06 20:51:00 81 /min [facility] Body temperature 2023-01-06 20:51:00 36.78 Martina [facility] Respiratory rate 2023-01-06 20:51:00 17 /min [facility] Body height 2023-01-06 20:51:00 152.4 cm [facility] Body weight 2023-01-06 20:51:00 69.31 kg [facility] BMI 2023-01-06 20:51:00 29.84 kg/m2 [facility] Systolic blood 2022-10-25 21:11:00 121 mm[Hg] [facility] Diastolic blood 2022-10-25 21:11:00 75 mm[Hg] [facility] Heart rate 2022-10-25 21:11:00 72 /min [facility] Body temperature 2022-10-25 21:11:00 36.83 Martina [facility] Respiratory rate 2022-10-25 21:11:00 18 /min [facility] Body weight 2022-10-25 21:11:00 66.951 kg [facility] BMI 2022-10-25 21:11:00 28.83 kg/m2 [facility] Systolic blood 2022-07-05 15:31:00 115 mm[Hg] [facility] Diastolic blood 2022-07-05 15:31:00 74 mm[Hg] [facility] Heart rate 2022-07-05 15:31:00 80 /min [facility] Body temperature 2022-07-05 15:31:00 36.56 Martina [facility] Respiratory rate 2022-07-05 15:31:00 18 /min [facility] Body height 2022-07-05 15:31:00 152.4 cm [facility] Body weight 2022-07-05 15:31:00 59.223 kg [facility] BMI 2022-07-05 15:31:00 25.50 kg/m2 [facility] Systolic blood 2022-06-30 15:00:00 109 mm[Hg] [facility] Diastolic blood 2022-06-30 15:00:00 76 mm[Hg] Unive rsity of pressure [facility] Heart rate 2022-06-30 15:00:00 86 /min Universi ty [facility] Body temperature 2022-06-30 15:00:00 36.5 Martina [facility] 2022-06-30 15:00:00 18 /min [facility] Body weight 2022-06-30 15:00:00 59.512 kg Universi ty [facility] BMI 2022-06-30 15:00:00 25.62 kg/m2 [facility] Systolic blood 2022-05-03 14:43:00 115 mm[Hg] Univer [facility]ity of [facility] Diastolic blood 2022-05-03 14:43:00 69 mm[Hg] Unive rsity of [facility] Heart rate 2022-05-03 14:43:00 79 /min Universi ty [facility] Body temperature 2022-05-03 14:43:00 36.44 Martina [facility] Respiratory rate 2022-05-03 14:43:00 20 /min [facility] Body height 2022-05-03 14:43:00 152.4 cm Universi ty [facility] Body weight 2022-05-03 14:43:00 60.646 kg Universi ty [facility] BMI 2022-05-03 14:43:00 26.11 kg/m2 Universi [facility] Procedures Procedure Date / Time Performing Clinician Source Performed ASSIGNMENT OF BENEFITS 2023-05-04 12:33:35 Doctor Unassigned, No [facility] POCT TEST 2023-05-04 00:00:00 Carolann [facility] POCT URINALYSIS W/O 2023-05-04 00:00:00 Carolann Hancock [facility] SPECIFIC GRAVITY [facility] GC & CHLAMYDIA 2023-04-19 15:12:00 Jackie Bourgeois [facility] AMPLIFIED ASSAY [facility] HIV 1/2 AG-AB WITH 2023-04-19 15:12:00 Jackie Bourgeois [facility] REFLEX [facility] SYPHILIS IGG/IGM 2023-04-19 15:12:00 [facility] GARD[facility]IL 9 (HPV 9V) 2023-04-19 14:40:04 [facility] 2023-01-11 21:58:34 Carolann Hancock [facility] TRANSVAGINAL [facility] URINE CULTURE 2023-01-06 22:18:00 Carolann [facility] GC & CHLAMYDIA 2023-01-06 22:18:00 Carolann Hancock [facility] AMPLIFIED ASSAY [facility] GALV ONLY - VAGINAL 2023-01-06 22:18:00 Carolann Hancock [facility] PATHOGENS BY NUCLEIC [employer] nch ACID TESTING POCT TEST 2022-10-25 00:00:00 Jackie Bourgeois [facility] POCT TEST 2022-06-30 15:01:00 Jackie Bourgeios Uni [facility] GARDASIL 9 (HPV 9V) 2022-05-03 14:35:32 Alexandru Valles [facility] Encounters Start End Encounter Admission Attending Care Care Encounter Source Date/Time Date/Time Type Type Clinicians Facility Department ID 2021-09-29 Emergency [facility] [id number] Univers 05:36:34 ity of [facility] 2023-05-30 2023-05-30 Outpatient R SANTI [facility] [id number] Univers 10:15:00 10:15:00 CAROLANN may [facility] 2023-05-05 2023-05-05 Outpatient R BK [facility] [id number] Univers 10:00:00 10:00:00 JACKIE may o f [facility] 2023-05-04 2023-05-04 Initial YEVGENIY Hancock 1.2.840.114 [id number] Univers 08:15:00 08:47:32 Carolann Cloud MONOGRAM OPERATOR 350.1.13.10 ity of Visit REGIONAL 4.2.7.2.686 Velasquez as MATERNAL [phone] [facility] & CHILD [address] [place] [address] 2023-05-04 2023-05-04 Outpatient R SANTI [facility] [id number] Univers 07:45:00 07:42:03 CAROLANN ity of [facility] 2023-05-04 2023-05-04 Orders Doctor JASON 1.2.840.114 [id number] Univers 00:00:00 00:00:00 Only Unassigned, MUKESH 350.1.13.10 ity of [place] [facility] 4.2.7.2.686 Velasquez as [phone] [address] 2023-05-04 2023-05-04 Letter Santi [facility] 1.2.840.114 [id number] Univers 00:00:00 00:00:00 (Out) Carolann Cloud MONOGRAM OPERATOR 350.1.13.10 i ty of [facility] 4.2.7.2.686 Velasquez as MATERNAL [phone] [facility] & CHILD [address] [place] [address] 2023-04-26 2023-04-26 [facility] 1.2.840.114 [id number] Univers 00:00:00 00:00:00 Carolann Cloud MONOGRAM OPERATOR 350.1.13.10 i ty of [facility] 4.2.7.2.686 Velasquez as MATERNAL [phone] [facility] & [address] 2023-04-19 2023-04-19 Outpatient R BK [facility] [id number] Univers 09:15:00 10:13:41 JACKIE parker [facility] 2023-04-19 2023-04-19 Office Bk [facility] [id number] [facility] 09:15:00 10:13:41 Visit Jackie Haywood MONOGRAM OPERATOR 350.1.13.10 ity of [facility] 4.2.7.2.686 Velasquez as MATERNAL [id number] [facility] & CHILD [address] [place] [address] 2023-01-24 2023-01-24 [facility] 1.2.840.114 [id number] Univers 00:00:00 00:00:00 Carolann A MONOGRAM OPERATOR 350.1.13.10 i ty of [facility] 4.2.7.2.686 Velasquez as MATERNAL [id number] [facility] ical & CHILD [address] [place] [address] 2023-01-18 2023-01-18 [facility] 1.2.840.114 [id number] Univers 00:00:00 00:00:00 Carolann A MONOGRAM OPERATOR 350.1.13.10 i ty of [facility] 4.2.7.2.686 Velasquez as MATERNAL [id number] [address] 2023-01-17 2023-01-17 Outpatient R [facility] [id number] Univers 08:30:00 08:30:00 ity [facility] 2023-01-11 2023-01-11 Outpatient R [facility] [id number] Univers 13:56:54 23:59:00 CAROLANN ity [facility] 2023-01-11 2023-01-11 [facility] 1.2.840.114 [id number] Univers 13:56:54 23:59:00 Encounter Carolann Cloud Y HEALTH 350.1.13.10 ity of [facility] 4.2.7.2.[place] [phone] [facility] [address] [place] [address] 2023-01-10 2023-01-10 Outpatient R NILAM CENTENO [facility] B [id number] Univers 10:30:00 10:30:00 [facility] 2023-01-10 2023-01-10 [facility] 1.2.840.114 [id number] Univers 00:00:00 00:00:00 Management Carolann A MONOGRAM OPERATOR 350.1.13.10 ity of [address]686 Velas[place] as MATERNAL [phone] [facility] & CHILD [address] [place] [address] 2023-01-06 2023-01-06 Outpatient R [facility] [id number] Univers 14:15:00 15:29:18 CAROLANN itdanielito of [facility] 2023-01-06 2023-01-06 Office Provider, Alec Temp [facility] 1 .2.840.114 [id number] Univers 14:15:00 15:29:18 Visit Santi Carolann Cloud MONOGRAM OPERATOR 350.1.13.1 0 ity of [facility] 4.2.7.2.686 Velasquez as MATERNAL [id number] [facility] ical & CHILD [address] [place] [address] 2023-01-06 2023-01-06 [facility] 1.2.840.114 [id number] Univers 00:00:00 00:00:00 (Out) Carolann Cloud MONOGRAM OPERATOR 350.1.13.10 i ty of [facility] 4.2.7.2.686 Velasquez as MATERNAL [id number] [facility] & CHILD [address] [place] [address] 2023-01-05 2023-01-05 Telephone [facility] 1.2.173.745 [id number] Univers 00:00:00 00:00:00 Alexandru Tyson MONOGRAM OPERATOR 350.1.13.10 ity of [facility] 4.2.7.2.686 Velasquez as MATERNAL [id number] [facility] & [address] 2022-10-25 2022-10-25 Outpatient R BK [facility] [id number] Univers 15:00:00 15:19:33 JACKIE may o f [facility] 2022-10-25 2022-10-25 Nurse Visit, Alec Nurse [facility] 1.2 .840.114 [id number] Univers 15:00:00 15:19:33 Visit Jackie Bourgeois MONOGRAM OPERATOR 350.1.13. 10 ity of [facility] 4.2.7.2.686 Velasquez as MATERNAL [id number] [facility] & CHILD [address] [place] [address] 2022-10-25 2022-10-25 [facility] [id number] [id number] Univers 00:00:00 00:00:00 Alexandru R MONOGRAM OPERATOR 350.1.13.10 ity of [facility] 4.2.7.2.686 Velasquez as MATERNAL [id number] [facility] & CHILD [address] [place] [address] 2022-10-25 2022-10-25 Letter Bk [facility] 1.2.900.025 [id number] Univers 00:00:00 00:00:00 (Out) Jackie Haywood MONOGRAM OPERATOR 350.1.13.10 ity of [facility] 4.2.7.2.686 Velasquez as MATERNAL [id number] [facility] & CHILD [address] [place] [address] 2022-10-05 2022-10-05 Outpatient R BK, [facility] [id number] Univers 09:00:00 09:00:00 JACKIE parker [facility] 2022-07-05 2022-07-05 Nurse Visit, Opalsaul Nurse [facility] 1.2 .840.114 [id number] Univers 10:00:00 10:42:18 Visit Jackie Bourgeois MONOGRAM OPERATOR 350.1.13. 10 ity of [facility] 4.2.7.2.686 Velasquez as MATERNAL [id number] [facility] & CHILD [address] [place] [address] 2022-07-05 2022-07-05 Outpatient R [facility] [id number] Univers 10:00:00 10:00:00 ity of [facility] 2022-07-05 2022-07-05 Outpatient R BK, [facility] [id number] Univers 10:00:00 10:00:00 JACKIE parker [facility] 2022-06-30 2022-06-30 Nurse Visit, Alec Nurse [facility] 1.2 .840.114 [id number] Univers 10:00:00 10:15:00 Visit Jackie Bourgeois MONOGRAM OPERATOR 350.1.13. 10 ity of [facility] 4.2.7.2.686 Velasquez as MATERNAL [id number] [facility] & CHILD [address] [place] [address] 2022-06-30 2022-06-30 [facility] [id number] Univers 10:00:00 10:00:00 JACKIE parker [facility] 2022-06-30 2022-06-30 Letter Valles [facility] 1.2.840.114 [id number] Univers 00:00:00 00:00:00 (Out) Alexandru Tyson MONOGRAM OPERATOR 350.1.13.10 ity of [facility] 4.2.7.2.686 Velasquez as MATERNAL [id number] [facility] & CHILD [address] [place] [address] 2022-05-03 2022-05-03 Outpatient R BK [facility] [id number] Univers 09:30:00 09:50:32 JACKIE may o f [facility] 2022-05-03 2022-05-03 Nurse Visit, [facility] Nurse [facility] 1.2 .840.114 [id number] Univers 09:30:00 09:50:32 Visit Jackie Bourgeois MONOGRAM OPERATOR 350.1.13. 10 ity of [facility] 4.2.7.2.686 Velasquez as MATERNAL [id number] [facility] CHILD [address] [place] [address] 2022-05-03 2022-05-03 Outpatient R [facility] [id number] Univers 09:30:00 09:30:00 ity [facility] 2022-05-03 2022-05-03 Outpatient R [facility] [id number] Univers 09:30:00 09:30:00 ity of [facility] 2022-05-03 2022-05-03 [facility] 1.2.714.997 [id number] Univers 00:00:00 00:00:00 (Out) Jackie Haywood MONOGRAM OPERATOR 350.1.13.10 ity of [facility] 4.2.7.2.686 Velasquez as MATERNAL [id number] [facility] & CHILD [address] [place] [address] 2022-04-30 2022-04-30 Orders Doctor GOMEZ 1.2.840.114 [id number] Univers 00:00:00 00:00:00 Only Unassigned, MUKESH 350.1.13.10 ity of [place] [facility] 4.2.7.2.686 Velasquez as [id number] [address] 2022-04-12 2022-04-12 Outpatient R BK [facility] [id number] Univers 09:30:00 10:04:20 JACKIE parker [facility] 2022-04-12 2022-04-12 Nurse Visit, Ang-Rmchp Nurse [facility] 1.2 .840.114 [id number] Univers 09:30:00 10:04:20 Visit Jackie Bourgeois MONOGRAM OPERATOR 350.1.13. 10 ity of [facility] 4.2.7.2.686 Velasquez as MATERNAL [id number] [facility] & CHILD [address] [place] [address] 2022-04-12 2022-04-12 Outpatient R [facility] [id number] Univers 09:30:00 09:30:00 ity of [facility] 2022-04-12 2022-04-12 [facility] [id number] Univers 00:00:00 00:00:00 (Out) Jackie Haywood MONOGRAM OPERATOR 350.1.13.10 ity of [facility] 4.2.7.2.686 Velasquez as MATERNAL [id number] [facility] CHILD [address] [place] [address] 2022-04-12 2022-04-12 Orders Doctor JASON 1.2.840.114 [id number] Univers 00:00:00 00:00:00 Only Unassigned, MUKESH 350.1.13.10 ity of [place] [facility] 4.2.7.2.686 Velasquez as [id number] [address] 2022-03-02 2022-03-02 Office Reena [facility] 1.2.840.114 [id number] Univers 07:45:00 09:13:40 Visit Alexandru Tyson MONOGRAM OPERATOR 350.1.13.10 ity of [facility] 4.2.7.2.686 Velasquez as MATERNAL [id number] [facility] & CHILD [address] [place] [address] 2022-03-02 2022-03-02 Outpatient R REENA [facility] [id number] Univers 07:45:00 09:13:40 ALEXANDRU may o elena [facility] 2022-03-02 2022-03-02 [facility] [id number] Univers 07:45:00 09:13:40 ROSAMANDANDA ity o f [facility] 2022-03-02 2022-03-02 Orders Doctor JASON 1.2.840.114 [id number] Univers 00:00:00 00:00:00 Only Unassigned, MUKESH 350.1.13.10 ity of [place] [facility] 4.2.7.2.686 Velasquez [id number] [facility] [address] 2021-09-06 2021-09-07 Emergency [facility] 1.2.840.114 [id number] Univers 23:39:00 01:20:00 Mariam Saldana 350.1.13.10 ity of [employer] 4[place] [id number] [facility] [address] [place] 2021-03-07 2021-03-07 Outpatient [facility] [id number] Univers 14:05:00 14:05:00 [facility] 2021-02-14 2021-02-14 Outpatient R ADINA, [facility] [id number] Univers 13:50:00 13:50:00 CARRIE [facility] Results Test Description Test Time Test Comments Results Result Comments Source POCT TEST 2023-05-04 12:56:00 Test Item Value Reference Range Interpretation Comme nts POCT PREG (test code = 1605) Positive On board controls acceptable with C Line (test code = 3574) Yes POCT PREG LOT # (test code = 3575) POCT PREG TEST DATE (test code = 3576) [facility] W/O SPECIFIC [id number] 12:56:00 Test Item Value Reference Range Interpretation Comments POCT PH U (test code = 3254) 5 mg/dl 5-8 POCT U LEUK EST (test code = negative Negative - Negative 3263) POCT U NIT (test code = 3262) negative Negative - Negative POCT U PROT (test code = 3259) trace Negative - Negative POCT U GLU (test code = 3256) negative Negative - Negative POCT U KETONE (test code = 3258) negative Negative - Negative POCT U BLD (test code = 3257) negative Negative - Negative [facility] [id number] 16:42:04 Test Item Value Reference Range Interpretation Comments Syphilis IgG/IgM (test Non-reactive Non-reactive code = 25231-5) MICHEAL (test code = MICHEAL) Non-reactive - No serologic evidence of T. pallidum infection. Cannot exclude incubating or early syphilis. Submit a second specimen in 2-4 weeks if syphilis is clinically suspected. Equivocal - Further testing to follow. Reactive - Further testing to follow. Lab Interpretation (test Normal code = 29758-5) [facility]2 AG-AB WITH [id number] 09:46:30 Test Item Value Reference Range Interpretation Comments HIV 0.07 Negative Semi-quantitative (test code = 20484-0) MICHEAL (test code = Non-reactive for HIV-1 MICHEAL) antigen and HIV-1/HIV-2 antibodies. ?No laboratory evidence of HIV infection. ?Repeat in 2-4 weeks if acute HIV infection is suspected. [facility] [id number] 21:20:00 Test Item Value Reference Range Interpretation Comments POCT PREG (test code = 1605) Negative On board controls acceptable with C Yes Line (test code = 3574) POCT PREG LOT # (test code = 3575) POCT PREG TEST DATE (test code = 3576) [facility] [id number] 15:01:00 Test Item Value Reference Range Interpretation Comments POCT PREG (test code = 1605) Negative On board controls acceptable with C Yes Line (test code = 3574) POCT PREG LOT # (test code = 3575) POCT PREG TEST DATE (test code = 3576) [facility]line[facility]ARS-CoV-2 (COVID-19), RT-PCR/[id number] 10:57:17 Test Item Value Reference Interpretation Comments Range SARS-CoV-2 NEGATIVE SEE NOTE SARS-CoV-2 RNA NOT INTERPRETATION DETECTEDNegat theresa (test code = 68741) results do not preclude SARS-C oV-2 infection [...] (test code = NASOPHARY[place]: [place] [address]) Samir Kimberly Marta l-Time RT-PCR. The exp ected result or [...] provided by met hod given in report:https:// www.[employer].com/clinic ians/cl ient-communicat ions/ Alternatively, see downloadable PD F fact sheet at:https://www. [employer]/COVID-19-R T-PCR UNLESS OTHERWIS E INDICATED, ALL TESTING PERFORMED [facility], [facility]. [address] [place] [address], [place] [address] TATO AMARO DIRECTOR: Wes COSTAIA NUMBER [id number] CAP ACCREDITATION N O. [id number]
[2023-05-13 17:45] LABS: Absolute Lymphocytes (CBC) 1.9 K/uL (0.7-4.9); Hematocrit 36.8 % (36.0-45.0); Lymphocytes % 25.1 % (15.3-44.8); MCV 90.3 fL (80-100); MPV 9.6 fL (7.6-11.3); RBC Red Blood Cell Count 4.08 M/uL (3.86-4.86)
[2023-05-13 17:47] LABS: Specific Gravity 1.024 (1.005-1.030)
[2023-05-13 17:48] LABS: Specific Gravity 1.024 (1.005-1.030); Urine Bilirubin NEGATIVE (Negative); Urine Blood Negative (Negative); Urine Clarity Clear (Clear); Urine Color Light-Yellow (Yellow); Urine Glucose NEGATIVE (Negative); Urine Protein NEGATIVE (Negative); Urine Urobilinogen Normal (Normal); Urine pH 5.5 (5.0-7.0)
[2023-05-13 18:03] LABS: Potassium 3.6 mEq/L (3.5-5.1)
--- NOTE | 2023-05-13 20:13 | EDPHYS ---
Physician Documentation [facility] Name: Roopa Mcclure Age: 27 yrs Sex: Female : 1995 Arrival Date: 05/13/2023 Time: 16:55 Bed 11 Private MD: ED Physician German Barroso HPI: 05/13 18:56 This 27 yrs old Female presents to ER via Ambulatory with complaints of snw Vaginal Bleeding, + Preg <12wks. 18:56 The patient presents with vaginal bleeding that is light, with no clots. Onset: The snw symptoms/episode began/occurred suddenly, today. Associated signs and symptoms: The patient has no apparent associated signs or symptoms. The patient has not experienced similar symptoms in the past. The patient has not recently seen a physician. 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 - Social history:: Smoking status: Patient denies any tobacco usage or history of. Patient/guardian denies using alcohol, street drugs, IV drugs. ROS: 18:54 Constitutional: Negative for fever, chills, and weight loss, Eyes: Negative for injury, snw pain, redness, and discharge, ENT: Negative for injury, pain, and discharge, Neck: Negative for injury, pain, and swelling, Cardiovascular: Negative for chest pain, palpitations, and edema, Respiratory: Negative for shortness of breath, cough, wheezing, and pleuritic chest pain, MS/Extremity: Negative for injury and deformity, Skin: Negative for injury, rash, and discoloration, Neuro: Negative for headache, weakness, numbness, tingling, and seizure, Psych: Negative for depression, anxiety, suicide ideation, homicidal ideation, and hallucinations. 18:54 Abdomen/GI: Positive for abdominal pain. 18:54 Back: Positive for pain at rest, of the low back area. 18:54 : Positive for vaginal bleeding. Exam: 18:53 Constitutional: This is a well developed, well nourished patient who is awake, alert, snw and in no acute distress. Head/Face: Normocephalic, atraumatic. Eyes: Pupils equal round and reactive to light, extra-ocular motions intact. Lids and lashes normal. Conjunctiva and sclera are non-icteric and not injected. Cornea within normal limits. Periorbital areas with no swelling, redness, or edema. ENT: Nares patent. No nasal discharge, no septal abnormalities noted. Tympanic membranes are normal and external auditory canals are clear. Oropharynx with no redness, swelling, or masses, exudates, or evidence of obstruction, uvula midline. Mucous membranes moist. Neck: Trachea midline, no thyromegaly or masses palpated, and no cervical lymphadenopathy. Supple, full range of motion without nuchal rigidity, or vertebral point tenderness. No Meningismus. Chest/axilla: Normal chest wall appearance and motion. Nontender with no deformity. No lesions are appreciated. Cardiovascular: Regular rate and rhythm with a normal S1 and S2. No gallops, murmurs, or rubs. Normal PMI, no JVD. No pulse deficits. Respiratory: Lungs have equal breath sounds bilaterally, clear to auscultation and percussion. No rales, rhonchi or wheezes noted. No increased work of breathing, no retractions or nasal flaring. Skin: Warm, dry with normal turgor. Normal color with no rashes, no lesions, and no evidence of cellulitis. MS/ Extremity: Pulses equal, no cyanosis. Neurovascular intact. Full, normal range of motion. Neuro: Awake and alert, GCS 15, oriented to person, place, time, and situation. Cranial nerves II-XII grossly intact. Motor strength 5/5 in all extremities. Sensory grossly intact. Cerebellar exam normal. Normal gait. Psych: Awake, alert, with orientation to person, place and time. Behavior, mood, and affect are within normal limits. 18:53 Back: No spinal tenderness. No costovertebral tenderness. Full range of motion. 18:53 Abdomen/GI: Inspection: abdomen appears normal, Bowel sounds: normal, Palpation: mild abdominal tenderness, in the suprapubic area, right lower quadrant and left lower quadrant. Vital Signs: 17:08 BP 114 / 77; Pulse 72; Resp 18; Temp 98.2(T); Weight 68.04 kg; Height 5 ft. 0 in. ; ml4 Pain 5/10; 19:54 BP 116 / 74; Pulse 70; Resp 16; Pulse Ox 100% on R/A; mb9 17:08 Body Mass Index 29.29 (68.04 kg, 152.4 cm) ml4 17:08 Pain Scale: Adult ml4 MDM: 17:19 Patient medically screened. gary 18:59 Differential diagnosis: threatened Ab, inevitable Ab, nonspecific abdominal pain, snw urinary tract infection. Data reviewed: vital signs, nurses notes. Counseling: I had a detailed discussion with the patient and/or guardian regarding: the historical points, exam findings, and any diagnostic results supporting the discharge/admit diagnosis, lab results, radiology results. Transition of care: After a detail discussion of the patient's case, care is transferred to German Barroso MD. 05/13 17:11 Order name: Abo/rh Typing; Complete Time: 18:53 snw 05/13 17:11 Order name: Basic Metabolic Panel; Complete Time: 18:20 snw 05/13 17:11 Order name: CBC with Diff; Complete Time: 17:46 snw 05/13 17:11 Order name: Test, Urine; Complete Time: 18:09 snw 05/13 17:11 Order name: Quantitative Hcg; Complete Time: 18:20 snw 05/13 17:11 Order name: Urinalysis w/ reflexes; Complete Time: 18:09 snw 05/13 18:09 Order name: US Transvaginal Ob snw 05/13 17:11 Order name: IV Saline Lock; Complete Time: 17:39 snw 05/13 17:11 Order name: Labs collected and sent; Complete Time: 17:39 snw 05/13 17:11 Order name: NPO; Complete Time: 17:18 snw Administered Medications: No medications were administered Disposition: 19:04 Co-signature as Attending Physician, German Barroso MD I agree with the assessment and gary plan of care. Disposition Summary: 05/13/23 20:12 Discharge Ordered Location: Home gary Problem: new gary Symptoms: have improved gary Condition: Stable gary Diagnosis - Threatened gary Followup: snw - With: Emergency Department - When: As needed - Reason: Worsening of condition Followup: snw - With: Private Physician - When: 2 - 3 days - Reason: Recheck today's complaints, Continuance of care, Re-evaluation by your physician Discharge Instructions: - Discharge Summary Sheet snw - Care snw - Threatened Miscarriage snw - Vaginal Bleeding During , First Trimester snw - First Trimester of snw Forms: - Medication Reconciliation Form gary - Thank You Letter gary - Antibiotic Education gary - Prescription Opioid Use gary - Work release form mb9 Signatures: Dispatcher [employer] EDGerman Sorto MD MD cha Waters, Shelly, NUTRITIONAL SERVICES DIRECTOR-C NUTRITIONAL SERVICES DIRECTOR-Csnw Bjorn, RNIII, Manuel RN RN ml4
--- NOTE | 2023-05-13 20:13 | ER ---
Nurse's Notes [facility] Name: Roopa Mcclure Age: 27 yrs Sex: Female : 1995 Arrival Date: 05/13/2023 Time: 16:55 Bed 11 Private MD: Diagnosis: Threatened Presentation: 05/13 17:10 Chief complaint: Patient states: lower back and abdominal pain x yesterday, vag ml4 spotting x 30 min ago, no clots. Coronavirus screen: At this time, the client does not indicate any symptoms associated with coronavirus-19. Ebola Screen: No symptoms or risks identified at this time. Initial Sepsis Screen: Does the patient meet any 2 criteria? No. Patient's initial sepsis screen is negative. Does the patient have a suspected source of infection? No. Patient's initial sepsis screen is negative. Risk Assessment: Do you want to hurt yourself or someone else? Patient reports no desire to harm self or others. Onset of symptoms. Care prior to arrival: None. Activity prior to arrival: None. Mechanism of Injury: No Mechanism of Injury. 17:10 Method Of Arrival: Ambulatory ml4 17:10 Acuity: IRVING 3 ml4 Triage Assessment: 17:12 General: Appears in no apparent distress. comfortable, Behavior is calm, cooperative, ml4 appropriate for age. Pain: Complains of pain in right lower quadrant and left lower quadrant Pain radiates to left low back and right low back Pain currently is 5 out of 10 on a pain scale. Quality of pain is described as aching, Pain began suddenly. EENT: No deficits noted. No signs and/or symptoms were reported regarding the EENT system. Neuro: No deficits noted. Level of Consciousness is awake, alert, obeys commands, Oriented to person, place, time, situation, Gait is steady. Cardiovascular: No deficits noted. Reports Capillary refill < 3 seconds. Respiratory: No deficits noted. Airway is patent Respiratory effort is even, unlabored, Respiratory pattern is regular, symmetrical. GI: Reports lower abdominal pain, nausea. : Reports vaginal bleeding that is light flow, spotty. Derm: No deficits noted. No signs and/or symptoms reported regarding the dermatologic system. Musculoskeletal: No deficits noted. No signs and/or symptoms reported regarding the musculoskeletal system. 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 - Social history:: Smoking status: Patient denies any tobacco usage or history of. Patient/guardian denies using alcohol, street drugs, IV drugs. Screenin:14 Abuse screen: Denies threats or abuse. Nutritional screening: No deficits noted. ml4 Tuberculosis screening: No symptoms or risk factors identified. 17:38 [facility] ED Fall Risk Assessment (Adult) History of falling in the last 3 months, mb9 including since admission No falls in past 3 months (0 pts) Confusion or Disorientation No (0 pts) Intoxicated or Sedated No (0 pts) Impaired Gait No (0 pts) Mobility Assist Device Used No (0 pt) Altered Elimination No (0 pt) Score/Fall Risk Level 0 - 2 = Low Risk Oriented to surroundings, Maintained a safe environment, Educated pt \T\ family on fall prevention, incl call for assistance when getting out of bed. Assessment: 17:38 Reassessment: see triage assessment. mb9 19:08 Reassessment: No changes from previously documented assessment. Patient and/or family mb9 updated on plan of care and expected duration. Pain level reassessed. Patient is alert, oriented x 3, equal unlabored respirations, skin warm/dry/pink. 19:30 Reassessment: ultrasound at bedside. mb9 Vital Signs: 17:08 BP 114 / 77; Pulse 72; Resp 18; Temp 98.2(T); Weight 68.04 kg; Height 5 ft. 0 in. ; ml4 Pain 5/10; 19:54 BP 116 / 74; Pulse 70; Resp 16; Pulse Ox 100% on R/A; mb9 17:08 Body Mass Index 29.29 (68.04 kg, 152.4 cm) ml4 17:08 Pain Scale: Adult 4 ED Course: 16:59 Patient arrived in ED. im 17:10 Arm band placed on right wrist. ml4 17:11 Kiarra Cleary FNP-C [facility]. snw 17:11 German Barroso MD is Attending Physician. snw 17:12 Triage completed. ml4 17:17 Krystin Valenzuela, RN is Primary Nurse. mb9 17:38 Placed in gown. Bed in low position. Call light in reach. Side rails up X 1. Client mb9 placed on continuous cardiac and pulse oximetry monitoring. NIBP monitoring applied. 17:38 No provider procedures requiring assistance completed. Inserted saline lock: 20 gauge mb9 in right antecubital area, using aseptic technique. 17:39 Abo/rh Typing Sent. mb9 17:39 Basic Metabolic Panel Sent. mb9 17:39 CBC with Diff Sent. mb9 17:39 Test, Urine Sent. mb9 17:39 Quantitative Hcg Sent. mb9 17:39 Urinalysis w/ reflexes Sent. mb9 20:07 US Transvaginal Ob In Process Unspecified. EDMS 20:18 IV discontinued, intact, bleeding controlled, No redness/swelling at site. Pressure mb9 dressing applied. Administered Medications: No medications were administered Medication: 17:38 VIS not applicable for this client. mb9 Outcome: 20:12 Discharge ordered by . gary 20:18 Discharged to home ambulatory. mb9 20:18 Condition: stable 20:18 Discharge instructions given to patient, Instructed on discharge instructions, follow up and referral plans. Demonstrated understanding of instructions, follow-up care. 20:18 Patient left the ED. mb9 Signatures: Dispatcher [employer] EDWA German Barroso MD MD cha Waters, Shelly, FNP-C HAMMER ADJUSTER-Csnw Krystin Valenzuela, RN RN mb9 Monica Humphrey RNIII, Manuel, RN RN ml4
--- NOTE | 2023-05-13 20:31 | RAD REPORT ---
EXAM DESCRIPTION: US - Transvaginal OB - 05/13/2023 8:06 pm CLINICAL HISTORY: with abdominal pain COMPARISON: None. FINDINGS: The uterus measures 10 x 4 x 6 centimeters. Within the endometrium is a gestational sac a nd a pole with a crown-rump length 1 centimeter. Cardiac activity 121 beats per minute 7 millim eter subchorionic bleed Ovaries are normal in size and echotexture.. 2.5 centimeter right ovarian cyst The right and left adnexa unremarkable No significant free fluid IMPRESSION: Single live intrauterine with an estimated gestational age 7 weeks 0 days MARSHAL 12/30/2023
[2023-05-13 21:32] VITALS: TEMP 98.2
[2023-05-13 21:35] VITALS: BP 116/74; O2SAT 100
== END 2023-05-13 20:18 | disposition home or self-care (01) ==
LOC: ER 16:55
DX: O20.0 Threatened abortion (principal)
CPT/HCPCS: 36415; 76817; 80048; 81003; 81025; 84702; 85025; 86900; 86901; 99284